=== PATIENT | female | born 1965 | race Two or more races ===

== ENCOUNTER 2020-07-27 13:10 | Outpatient (REF) | payer OTHER, SELFPAY | END 2020-07-27 13:11 | disposition home or self-care (01) | LOC: HO.RESP 13:10 | PROVIDERS: PCP Internal Medicine; Visit Provider Internal Medicine | DX: Z13.89 Encounter for screening for other disorder (principal) ==

== ENCOUNTER 2020-07-30 14:37 | Outpatient (REF) | payer OTHER, SELFPAY ==
--- NOTE | 2020-07-30 13:22 | PFT_ITS ---
The patient was referred for pulmonary function test. However, the patient was unable to perform the maneuvers for lung volumes and diffusion capacity. The spirometry findings are as follows: FVC, FEV1, [id number] and MVV are all markedly decreased. Post bronchodilator test was not performed. These findings are suggestive of rather severe degree of obstructive airway disorder. Clinical correlation recommended. MD ADAMS Wan/JARRETT / [id number]
== END 2020-07-30 14:38 | disposition home or self-care (01) ==
LOC: HO.RESP 14:37
PROVIDERS: Visit Provider Internal Medicine
DX: R06.02 Shortness of breath (principal)
CPT/HCPCS: 94060; 94727; 94729

== ENCOUNTER 2020-08-20 15:02 | Outpatient (REF) | payer OTHER, SELFPAY ==
[2020-08-21 09:22] LABS: BV Int Neg Control Negative (Negative); BV Int Pos Control Positive (Positive)
[2020-08-24 18:12] LABS: CT PCR NOT DETECTED (Not Detect.); NG PCR NOT DETECTED (Not Detect.)
== END 2020-08-20 15:03 | disposition home or self-care (01) ==
LOC: HO.LAB 15:02
PROVIDERS: PCP Internal Medicine; Referring Provider Internal Medicine; Visit Provider Obstetrics & Gynecology
DX: N89.8 Other specified noninflammatory disorders of vagina (principal); Z78.0 Asymptomatic menopausal state; Z11.8 Encounter for screening for other infectious and parasitic diseases; Z11.3 Encounter for screening for infections with a predominantly sexual mode of transmission
CPT/HCPCS: 87480; 87491; 87510; 87591; 87660; 99212

== ENCOUNTER 2020-08-31 13:33 | Outpatient (REF) | payer OTHER, SELFPAY ==
[2020-08-31 16:10] LABS: Syphilis Screen Nonreactive (Nonreactive)
[2020-09-02 12:00] LABS: BV Int Neg Control Negative (Negative); BV Int Pos Control Positive (Positive)
[2020-09-03 07:54] LABS: HBsAGNum1 0.15 S/CO (0.00-0.99); Hepatitis B Surface Antigen Negative (Negative); ~HepC Num1 0.09 S/CO (0.00-0.79); ~Hepatitis C Antibody Nonreactive (Nonreactive)
[2020-09-03 08:28] LABS: HIV AB/AG Nonreactive (Nonreactive); HIV Num 1 0.11 S/CO (0.00-0.99)
== END 2020-08-31 13:34 | disposition home or self-care (01) ==
LOC: HO.LAB 13:33
PROVIDERS: PCP Internal Medicine; Visit Provider Advanced Practice Midwife
DX: Z01.419 Encounter for gynecological examination (general) (routine) without abnormal findings (principal); Z20.2 Contact with and (suspected) exposure to infections with a predominantly sexual mode of transmission
CPT/HCPCS: 86780; 86803; 87340; 87389; 87480; 87491; 87510; 87591; 87660

== ENCOUNTER 2020-09-11 14:44 | Outpatient (REF) | payer OTHER, SELFPAY | END 2020-09-11 14:45 | disposition home or self-care (01) | LOC: HO.LAB 14:44 | PROVIDERS: Visit Provider Internal Medicine | DX: Z20.828 Contact with and (suspected) exposure to other viral communicable diseases (principal) | CPT/HCPCS: C9803; U0003 ==

== ENCOUNTER 2020-11-28 09:24 | Outpatient (REF) | payer OTHER, SELFPAY ==
--- NOTE | ~2020-11-28 | XR_ITS ---
EXAMINATION: XR CHEST CLINICAL INFORMATION: Shortness of breath COMPARISON: Previous chest x-ray most recent March 2015 TECHNIQUE: 2 views of the chest were obtained. FINDINGS: No significant abnormality is noted involving the heart, lungs, mediastinum, bony thorax or soft tissues. XR/XR chest 2V IMPRESSION: Unremarkable examination.
[2020-11-28 11:13] LABS: Alanine Aminotransferase 10 U/L (0-31); Albumin Level 4.3 g/dL (3.5-5.0); Alkaline Phosphatase 98 U/L (39-117); Anion Gap 9 (12-20); Aspartate Amino Transferase 17 U/L (5-31); Bilirubin Total 0.7 mg/dL (0.0-1.0); Blood Urea Nitrogen 9 mg/dL (9-16); Calcium 9.5 mg/dL (8.4-10.2); Carbon Dioxide 31 mmol/L (22-29); Chloride 103 mmol/L (96-108); Cholesterol 276 mg/dL; Estimated Glomerular Filt Rate > 60; Glucose Fasting 108 mg/dL (60-99); HDL Cholesterol 55 mg/dL; LDL Cholesterol Calculated 184 mg/dl; Potassium 3.9 mmol/L (3.3-5.1); Sodium 139 mmol/L (135-145); Total Protein 7.3 g/dL (6.5-8.0); Triglycerides 186 mg/dL
[2020-11-29 10:13] LABS: CT PCR NOT DETECTED (Not Detect.); NG PCR NOT DETECTED (Not Detect.)
== END 2020-11-28 09:25 | disposition home or self-care (01) ==
LOC: HO.LAB 09:24
PROVIDERS: Advanced Practice Midwife; PCP Internal Medicine; Visit Provider Internal Medicine
DX: Z01.419 Encounter for gynecological examination (general) (routine) without abnormal findings (principal); Z11.3 Encounter for screening for infections with a predominantly sexual mode of transmission; Z20.2 Contact with and (suspected) exposure to infections with a predominantly sexual mode of transmission; E78.5 Hyperlipidemia, unspecified; I10 Essential (primary) hypertension; R06.02 Shortness of breath
CPT/HCPCS: 36415; 71046; 80053; 80061; 87491; 87591

== ENCOUNTER → 2020-12-26 14:54 | Outpatient (BNVA) | payer OTHER, SELFPAY | PROVIDERS: PCP Internal Medicine; Visit Provider Surgery | DX: K64.9 Unspecified hemorrhoids (principal) | CPT/HCPCS: 46600; 99202 ==

== ENCOUNTER 2021-01-07 10:43 | Outpatient (REF) | payer OTHER, SELFPAY ==
--- NOTE | ~2021-01-07 | MM_ITS ---
EXAMINATION: MM SCREENING DIGITAL BREAST TOMOSYNTHESIS, BILATERAL CLINICAL INFORMATION: Screening. Asymptomatic. The lifetime risk of breast cancer based on the Tyrer-Cuzick Model is 9%. COMPARISON: Mammography: 07/06/2019, 06/08/2018, 07/22/2016, 03/13/2015 TECHNIQUE: Digital breast tomosynthesis is performed in both the craniocaudal and mediolateral oblique views along with computer-aided detection (CAD). Synthesized 2D images are generated from the tomosynthesis. FINDINGS: There are scattered areas of fibroglandular density (ACR BI-RADS breast composition Category b). There are no significant masses, abnormal calcifications, or other abnormalities. There are no significant changes from prior exams. MM/MM tomosynthesis screening BI IMPRESSION: No mammographic evidence of malignancy. ASSESSMENT: BI-RADS 1: Negative RECOMMENDATION: Routine annual mammography screening. This patient's information was entered into a reminder system with a target due date for their next mammogram.
== END 2021-01-07 10:44 | disposition home or self-care (01) ==
LOC: HO.MAMMO 10:43
PROVIDERS: PCP Internal Medicine; Visit Provider Internal Medicine
DX: Z12.31 Encounter for screening mammogram for malignant neoplasm of breast (principal)
CPT/HCPCS: 77063; 77067

== ENCOUNTER 2021-06-06 10:22 | Outpatient (REF) | payer OTHER, SELFPAY ==
[2021-06-06 11:37] LABS: Alanine Aminotransferase 13 U/L (0-31); Albumin Level 4.3 g/dL (3.5-5.0); Alkaline Phosphatase 97 U/L (39-117); Anion Gap 12 (12-20); Aspartate Amino Transferase 16 U/L (5-31); Bilirubin Total 0.3 mg/dL (0.0-1.0); Blood Urea Nitrogen 7 mg/dL (9-16); Carbon Dioxide 26 mmol/L (22-29); Chloride 107 mmol/L (96-108); Cholesterol 269 mg/dL; Estimated Glomerular Filt Rate > 60; Glucose Fasting 97 mg/dL (60-99); HDL Cholesterol 59 mg/dL; LDL Cholesterol Calculated 183 mg/dl; Potassium 4.5 mmol/L (3.3-5.1); Sodium 140 mmol/L (135-145); Total Protein 7.1 g/dL (6.5-8.0); Triglycerides 136 mg/dL
[2021-06-12 13:20] LABS: Vitamin D 25-OH, D2 <4 ng/mL; Vitamin D 25-OH, D3 27 ng/mL; Vitamin D 25-OH, Total 27 ng/mL (30-100)
== END 2021-06-06 10:23 | disposition home or self-care (01) ==
LOC: HO.LAB 10:22
PROVIDERS: PCP Internal Medicine; Visit Provider Internal Medicine
DX: E78.5 Hyperlipidemia, unspecified (principal); I10 Essential (primary) hypertension; E55.9 Vitamin D deficiency, unspecified
CPT/HCPCS: 36415; 80053; 80061; 82306

== ENCOUNTER 2021-06-11 10:37 | Outpatient (REF) | payer OTHER, SELFPAY ==
--- NOTE | ~2021-06-11 | XR_ITS ---
EXAMINATION: XR FOOT, LEFT CLINICAL INFORMATION: Pain COMPARISON: None TECHNIQUE: AP, lateral, and oblique views of the left foot. FINDINGS: There is mild osteopenia. No visible acute fracture, dislocation or subluxation seen. There is no abnormal soft tissue swelling. The ankle mortise and subtalar joints are normal. XR/XR foot LT min 3V IMPRESSION: Mild osteopenia. No visible acute fracture or dislocation seen.
== END 2021-06-11 10:38 | disposition home or self-care (01) ==
LOC: HO.XRAY 10:37
PROVIDERS: PCP Internal Medicine; Visit Provider Internal Medicine
DX: M79.672 Pain in left foot (principal)
CPT/HCPCS: 73630

== ENCOUNTER 2021-07-10 16:36 | Outpatient (REF) | payer OTHER, SELFPAY ==
[2021-07-10 17:30] LABS: Estimated Average Glucose 114 mg/dL; Hemoglobin A1c % 5.6 %
[2021-07-10 17:43] LABS: Alanine Aminotransferase 12 U/L (0-31); Albumin Level 4.4 g/dL (3.5-5.0); Alkaline Phosphatase 96 U/L (39-117); Anion Gap 12 (12-20); Aspartate Amino Transferase 17 U/L (5-31); Bilirubin Total 0.4 mg/dL (0.0-1.0); Blood Urea Nitrogen 7 mg/dL (9-16); Calcium 9.8 mg/dL (8.4-10.2); Carbon Dioxide 27 mmol/L (22-29); Chloride 104 mmol/L (96-108); Cholesterol 291 mg/dL; Estimated Glomerular Filt Rate > 60; Glucose Fasting 101 mg/dL (60-99); HDL Cholesterol 56 mg/dL; LDL Cholesterol Calculated 200 mg/dl; Potassium 4.1 mmol/L (3.3-5.1); Sodium 139 mmol/L (135-145); Total Protein 7.4 g/dL (6.5-8.0); Triglycerides 177 mg/dL
== END 2021-07-10 16:37 | disposition home or self-care (01) ==
LOC: HO.LAB 16:36
PROVIDERS: PCP Internal Medicine; Visit Provider Internal Medicine
DX: Z13.1 Encounter for screening for diabetes mellitus (principal); E78.5 Hyperlipidemia, unspecified
CPT/HCPCS: 36415; 80053; 80061; 83036

== ENCOUNTER 2021-09-02 09:30 | Outpatient (REF) | payer OTHER, SELFPAY ==
--- NOTE | 2021-09-02 11:26 | MHC.AU.ANR ---
Adult Audiological Evaluation Date of Visit: 09/02/21 Reason for Appointment: Audiological evaluation due to concern for decreased hearing. Ms. Sun reports that her primary care physician referred her because she noticed an abnormality in her right ear and possible infection two weeks ago. Ms. Sun feels that he hearing has been gradually decreasing and has been worse over the past three months. Does patient feel they have a hearing loss?: Yes If Yes, Which Ear?: Both Ears Has hearing been tested previously?: Yes Previous Hearing Test Results: Notes her hearing was tested a long time ago but does not remember results. Hearing Handicap Inventory: HHIE SCORE: 24 Based on HHIE score, patient has: Mild to moderate perceived hearing handicap Ear History: Recent Ear Pain: Both Ears Ear Infections in Childhood: Both Ears Medical History: Medical History: Dizziness or Unsteadiness, Headache, High Blood Pressure Medical History (Other): Appendectomy, leg surgery Allergies: Aspirin, trazodone, tramadol Medication List: albuterol sulfate 90 mcg/actuation (ProAir RespiClick) 2 inhalations inhalation Q6H PRN; atorvastatin 40 mg PO BEDTIME, bupropion HCl 300 mg PO QAM, fluticasone propionate 50 mcg/actuation 1 spray intranasal DAILY, lisinopril 10 mg PO DAILY, omeprazole 20 mg PO DAILY Otoscopy: Right Ear: White, cloudy TM, fluid behind TM. Clear canal Left Ear: Unremarkable Tympanometry: Tympanometry performed due to: To assess integrity of the middle ear system Right Ear: Reduced Middle Ear Compliance (Type As) Left Ear: Normal Middle Ear System (Type A) Hearing Evaluation: Transducer(s) Used: Insert Earphones,Bone Conduction Method: Conventional Audiometry Stimuli Used: Pure Tones Right Ear: Description of Hearing: Normal hearing from 250-2000 Hz, sloping to a mild conductive hearing loss from 2448-1476 Hz. Air-bone gap of 20 dBHL at 4000 Hz. Left Ear: Description of Hearing: Normal hearing from 250-8000 Hz. Speech Recognition Threshold (SRT): Method Used: Monitored Live Voice Stimuli Used: Spondee Words Right Ear: 15 dBHL Left Ear: 10 dBHL Word Discrimination: Method: Recorded Lists Word Lists Used: NU-6 Right Ear: 96% at 55 dBHL Left Ear: 96% at 50 dBHL Interpretation of Results: Mild conductive hearing loss in the right ear in the presence of middle-ear dysfunction. Normal hearing and middle-ear function in the left ear. Recommendations: Audiological re-evaluation in one year. Referral to Ear, Nose, and Throat to address middle ear dysfunction and conductive hearing loss. Diagnosis: Primary Diagnosis: H90.11 ConductiveHL Unilateral Right Ear, W/Unrestricted Contralateral Secondary Diagnosis: H69.91 Unspecified Eustachian Tube Dysfunction, Right Ear Services Performed: Services Performed: Comprehensive Audiological Evaluation (CPT 89981) Tympanometry (CPT 64631) Signature: Provider: Kennedy Seo, CCC-A
== END 2021-09-02 09:31 | disposition home or self-care (01) ==
LOC: HO.SH 09:30
PROVIDERS: Visit Provider Internal Medicine
DX: H90.11 Conductive hearing loss, unilateral, right ear, with unrestricted hearing on the contralateral side (principal); H69.91 Unspecified Eustachian tube disorder, right ear
CPT/HCPCS: 92557; 92567

== ENCOUNTER 2021-09-02 10:29 | Outpatient (REF) | payer OTHER, SELFPAY ==
[2021-09-02 16:24] LABS: CT PCR NOT DETECTED (Not Detect.); NG PCR NOT DETECTED (Not Detect.)
[2021-09-03 09:32] LABS: BV Int Neg Control Negative (Negative); BV Int Pos Control Positive (Positive)
[2021-09-06 02:22] LABS: HPV mRNA E6/E7 rflx Not Detected (Not Detected)
== END 2021-09-02 10:30 | disposition home or self-care (01) ==
LOC: HO.LAB 10:29
PROVIDERS: PCP Internal Medicine; Visit Provider Advanced Practice Midwife
DX: Z01.419 Encounter for gynecological examination (general) (routine) without abnormal findings (principal); N89.8 Other specified noninflammatory disorders of vagina; Z11.3 Encounter for screening for infections with a predominantly sexual mode of transmission; Z11.8 Encounter for screening for other infectious and parasitic diseases; Z11.51 Encounter for screening for human papillomavirus (HPV); Z11.59 Encounter for screening for other viral diseases; Z11.4 Encounter for screening for human immunodeficiency virus [HIV]; I10 Essential (primary) hypertension; E78.5 Hyperlipidemia, unspecified; A60.00 Herpesviral infection of urogenital system, unspecified; Z87.42 Personal history of other diseases of the female genital tract; Z88.6 Allergy status to analgesic agent; Z88.8 Allergy status to other drugs, medicaments and biological substances; Z79.899 Other long term (current) drug therapy
CPT/HCPCS: 87255; 87480; 87491; 87510; 87591; 87624; 87660; 88142

== ENCOUNTER 2021-11-28 12:14 | Outpatient (REF) | payer OTHER, SELFPAY ==
--- NOTE | ~2021-11-28 | XR_ITS ---
EXAMINATION: XR CERVICAL SPINE CLINICAL INFORMATION: Neck pain COMPARISON: Previous x-ray August 2016 TECHNIQUE: 3 views of the cervical spine were obtained. FINDINGS: Bone alignment is normal. No fracture or dislocation is seen. There is degenerative spondylosis and degenerative disc disease from C3-C4 to C6-C7. Prevertebral soft tissues are normal. XR/XR cervical spine 3V IMPRESSION: Degenerative changes. Findings are similar to 2016 exam.
== END 2021-11-28 12:15 | disposition home or self-care (01) ==
LOC: HO.XRAY 12:14
PROVIDERS: PCP Internal Medicine; Visit Provider Nurse Practitioner Family
DX: M54.2 Cervicalgia (principal); M54.9 Dorsalgia, unspecified
CPT/HCPCS: 72040

== ENCOUNTER 2022-01-09 10:07 | Outpatient (REF) | payer OTHER, SELFPAY ==
--- NOTE | ~2022-01-09 | MM_ITS ---
EXAMINATION: MM SCREENING DIGITAL BREAST TOMOSYNTHESIS, BILATERAL CLINICAL INFORMATION: Screening. Asymptomatic. The lifetime risk of breast cancer based on the Tyrer-Cuzick Model is 7.6%. COMPARISON: Mammography: January 07, 2021 and studies dating back to March 31, 2014 TECHNIQUE: Digital breast tomosynthesis is performed in both the craniocaudal and mediolateral oblique views along with computer-aided detection (CAD). Synthesized 2D images are generated from the tomosynthesis. FINDINGS: There are scattered areas of fibroglandular density (ACR BI-RADS breast composition Category b). There are no significant masses, abnormal calcifications, or other abnormalities. MM/MM tomosynthesis screening BI IMPRESSION: There are no significant changes from prior study. ASSESSMENT: BI-RADS 1: Negative RECOMMENDATION: Routine annual mammography screening. This patient's information was entered into a reminder system with a target due date for their next mammogram.
== END 2022-01-09 10:08 | disposition home or self-care (01) ==
LOC: HO.MAMMO 10:07
PROVIDERS: Visit Provider Internal Medicine
DX: Z12.31 Encounter for screening mammogram for malignant neoplasm of breast (principal)
CPT/HCPCS: 77063; 77067

== ENCOUNTER 2022-02-05 09:58 | Outpatient (REF) | payer OTHER, SELFPAY ==
[2022-02-05 11:51] LABS: HIV AB/AG Nonreactive (Nonreactive); HIV Num 1 0.06 S/CO (0.00-0.99); Hepatitis B Surface Antigen Negative (Negative); ~HepC Num1 0.11 S/CO (0.00-0.79); ~Hepatitis C Antibody Nonreactive (Nonreactive)
[2022-02-05 12:06] LABS: Alanine Aminotransferase 12 U/L (0-31); Albumin Level 4.2 g/dL (3.5-5.0); Alkaline Phosphatase 90 U/L (39-117); Anion Gap 11 (12-20); Aspartate Amino Transferase 16 U/L (5-31); Bilirubin Total 0.6 mg/dL (0.0-1.0); Blood Urea Nitrogen 7 mg/dL (9-16); Calcium 10.1 mg/dL (8.4-10.2); Carbon Dioxide 27 mmol/L (22-29); Chloride 107 mmol/L (96-108); Cholesterol 297 mg/dL; Estimated Glomerular Filt Rate > 60; Glucose Fasting 105 mg/dL (60-99); HDL Cholesterol 58 mg/dL; LDL Cholesterol Calculated 210 mg/dl; Potassium 4.6 mmol/L (3.3-5.1); Sodium 140 mmol/L (135-145); Total Protein 7.2 g/dL (6.5-8.0); Triglycerides 147 mg/dL
[2022-02-05 12:17] LABS: Syphilis Screen Nonreactive (Nonreactive)
[2022-02-10 12:36] LABS: Vitamin D 25-OH, D2 <4 ng/mL; Vitamin D 25-OH, D3 23 ng/mL; Vitamin D 25-OH, Total 23 ng/mL (30-100)
== END 2022-02-05 09:59 | disposition home or self-care (01) ==
LOC: HO.LAB 09:58
PROVIDERS: Advanced Practice Midwife; PCP Internal Medicine; Visit Provider Internal Medicine
DX: Z11.4 Encounter for screening for human immunodeficiency virus [HIV] (principal); Z11.3 Encounter for screening for infections with a predominantly sexual mode of transmission; A60.00 Herpesviral infection of urogenital system, unspecified; Z20.2 Contact with and (suspected) exposure to infections with a predominantly sexual mode of transmission; E55.9 Vitamin D deficiency, unspecified; E78.5 Hyperlipidemia, unspecified; I10 Essential (primary) hypertension; Z87.42 Personal history of other diseases of the female genital tract
CPT/HCPCS: 36415; 80053; 80061; 82306; 86780; 86803; 87340; 87389

== ENCOUNTER 2022-02-20 08:00 | Outpatient (REF) | payer OTHER, SELFPAY ==
[2022-02-20 08:23] LABS: MANUAL DIFF FLAG NO
[2022-02-20 08:45] LABS: Basophils Absolute Auto 0.1 X10*3/uL (0.0-0.2); Basophils Percent Auto 0.9 % (0-2); Eosinophils Absolute Auto 0.2 X10*3/uL (0.0-0.4); Eosinophils Percent Auto 2.6 % (0-4); Hematocrit 37.9 % (37.0-47.0); Hemoglobin 12.5 g/dl (12.0-16.0); Imm Gran Abs Auto 0.01 X10*3/uL (0.00-0.03); Imm Gran Pct Auto 0.2 % (0.0-0.4); Lymphocytes Absolute Auto 2.5 X10*3/uL (1.2-4.9); Lymphocytes Percent Auto 43.7 % (20-40); Mean Corpuscular Hemoglobin 29.5 pg (27.0-33.0); Mean Corpuscular Volume 89.4 fL (80.0-98.0); Mean Platelet Volume 10.2 fL (9.4-12.3); Monocytes Absolute Auto 0.5 X10*3/uL (0.1-1.2); Monocytes Percent Auto 8.3 % (2-11); Neutrophils Absolute Auto 2.5 x10*3/uL (2.0-8.3); Neutrophils Percent Auto 44.3 % (45-73); Platelet Count 250 X10*3/uL (160-400); Red Blood Count 4.24 X10*6/uL (4.20-5.50); Red Cell Distribution Width 12.5 % (11.0-16.0); White Blood Count 5.7 X10*3/uL (4.8-10.8)
[2022-02-20 09:24] LABS: Thyroid Stimulating Hormone 2.29 uIU/mL (0.32-4.0)
== END 2022-02-20 08:01 | disposition home or self-care (01) ==
LOC: HO.LAB 08:00
PROVIDERS: PCP Internal Medicine; Visit Provider Internal Medicine
DX: R63.4 Abnormal weight loss (principal)
CPT/HCPCS: 36415; 84443; 85025

== ENCOUNTER 2022-07-21 08:29 | Outpatient (REF) | payer OTHER, SELFPAY ==
--- NOTE | ~2022-07-21 | XR_ITS ---
EXAMINATION: XR MANDIBLE CLINICAL INFORMATION: R22.0 - Localized swelling, mass and lump, head COMPARISON: None TECHNIQUE: 5 views of the mandible were obtained. FINDINGS: There is no destructive process or periostitis. No expansile lesion or exostosis. The visualized sinuses and mastoid air cells show no air-fluid levels. No gas tracking in soft tissues. If there is localized swelling, further assessment with CT or MR may be considered. XR/XR mandible min 4V IMPRESSION: Unremarkable examination.
[2022-07-21 09:29] LABS: Alanine Aminotransferase 12 U/L (0-31); Albumin Level 4.3 g/dL (3.5-5.0); Alkaline Phosphatase 93 U/L (39-117); Anion Gap 15 (12-20); Aspartate Amino Transferase 17 U/L (5-31); Bilirubin Total 0.4 mg/dL (0.0-1.0); Blood Urea Nitrogen 10 mg/dL (9-16); Calcium 9.7 mg/dL (8.4-10.2); Carbon Dioxide 26 mmol/L (22-29); Chloride 104 mmol/L (96-108); Cholesterol 275 mg/dL; Estimated Glomerular Filt Rate > 60; Glucose Fasting 105 mg/dL (60-99); HDL Cholesterol 58 mg/dL; LDL Cholesterol Calculated 193 mg/dl; Potassium 4.8 mmol/L (3.3-5.1); Sodium 140 mmol/L (135-145); Total Protein 7.3 g/dL (6.5-8.0); Triglycerides 122 mg/dL
[2022-07-21 09:42] LABS: Vitamin D 25-OH Total 25.7 ng/mL (>30)
== END 2022-07-21 08:30 | disposition home or self-care (01) ==
LOC: HO.XRAY 08:29
PROVIDERS: PCP Internal Medicine; Visit Provider Internal Medicine
DX: Z00.00 Encounter for general adult medical examination without abnormal findings (principal); R22.0 Localized swelling, mass and lump, head; E55.9 Vitamin D deficiency, unspecified; E78.5 Hyperlipidemia, unspecified
CPT/HCPCS: 36415; 70110; 80053; 80061; 82306

== ENCOUNTER 2022-09-05 09:54 | Outpatient (REF) | payer OTHER, SELFPAY ==
[2022-09-06 11:22] LABS: BV Int Neg Control Negative (Negative); BV Int Pos Control Positive (Positive)
== END 2022-09-05 09:55 | disposition home or self-care (01) ==
LOC: HO.LNP 09:54
PROVIDERS: PCP Internal Medicine; Visit Provider Advanced Practice Midwife
DX: Z01.419 Encounter for gynecological examination (general) (routine) without abnormal findings (principal); A60.00 Herpesviral infection of urogenital system, unspecified; Z20.2 Contact with and (suspected) exposure to infections with a predominantly sexual mode of transmission
CPT/HCPCS: 87480; 87491; 87510; 87591; 87660

== ENCOUNTER 2022-09-05 10:55 | Outpatient (REF) | payer OTHER, SELFPAY ==
[2022-09-06 04:37] LABS: CT PCR NOT DETECTED (Not Detect.); NG PCR NOT DETECTED (Not Detect.)
== END 2022-09-05 10:56 | disposition home or self-care (01) ==
LOC: HO.LAB 10:55
PROVIDERS: PCP Internal Medicine; Visit Provider Advanced Practice Midwife
DX: Z13.89 Encounter for screening for other disorder (principal)
CPT/HCPCS: 87491; 87591

== ENCOUNTER 2023-01-23 08:44 | Outpatient (REF) | payer OTHER, SELFPAY ==
--- NOTE | ~2023-01-23 | MM_ITS ---
EXAMINATION: MM SCREENING DIGITAL BREAST TOMOSYNTHESIS, BILATERAL CLINICAL INFORMATION: Screening. Asymptomatic. The lifetime risk of breast cancer based on the Tyrer-Cuzick Model is 8%. COMPARISON: Mammography: 01/09/2022, 01/07/2021, 07/06/2019 TECHNIQUE: Digital breast tomosynthesis is performed in both the craniocaudal and mediolateral oblique views along with computer-aided detection (CAD). Synthesized 2D images are generated from the tomosynthesis. FINDINGS: There are scattered areas of fibroglandular density (ACR BI-RADS breast composition Category b). There are no significant masses, abnormal calcifications, or other abnormalities. No architectural abnormality or developing density or significant change from prior studies. The axilla and skin contours are unremarkable. MM/MM tomosynthesis screening BI IMPRESSION: No significant changes from prior exam. ASSESSMENT: BI-RADS 1: Negative RECOMMENDATION: Routine annual mammography screening. This patient's information was entered into a reminder system with a target due date for their next mammogram.
== END 2023-01-23 08:45 | disposition home or self-care (01) ==
LOC: HO.MAMMO 08:44
PROVIDERS: PCP Internal Medicine; Visit Provider Internal Medicine
DX: Z12.31 Encounter for screening mammogram for malignant neoplasm of breast (principal)
CPT/HCPCS: 77063; 77067

== ENCOUNTER 2023-07-29 08:07 | Outpatient (AMB) | payer OTHER, SELFPAY ==
[2023-07-29 08:09] VITALS: BP 148/80; PULSE 71; O2SAT 99; BMI 25.3
--- NOTE | 2023-07-29 08:09 | MHC.PC.OV ---
Vital Signs 07/29/23 08:09 07/29/23 08:59 Height 5 ft 3 in Weight 143 lb BMI 25.3 BP 148/80 H 150/80 H Blood Pressure Location Lt brachial Lt brachial Position Sitting Sitting Pulse 71 Pulse Source Pulse Oximeter Pulse Oximetry (%) 99 Oxygen Delivery Method Room Air Intake Visit Reasons: PE Intake Note: Patient here for a physical exam Model Maker Scale Required: No Accompanied by: Self / Same As Patient Allergies aspirin [ASPIRIN] Allergy (Intermediate, Verified 07/29/23 08:42) SOB N/V trazodone [TRAZODONE] Allergy (Intermediate, Verified 07/29/23 08:42) NAUSEA & VOMITING tramadol Adverse Reaction (Intermediate, Verified 07/29/23 08:42) stomach upset Medication List - Last Reconciled 07/29/23 by Ashley Stafford MD acetaminophen 1,000 mg PO Q6H PRN albuterol sulfate 90 mcg/actuation (ProAir RespiClick) 2 inhalations inhalation Q6H PRN 30 days atorvastatin 80 mg PO BEDTIME 90 days bupropion HCl 300 mg PO QAM 90 days cholecalciferol (vitamin D3) 25 mcg PO DAILY 90 days doxepin 10 mg PO BEDTIME fluticasone propionate 50 mcg/actuation 1 spray intranasal DAILY 30 days levalbuterol tartrate 45 mcg/actuation 2 inhalations inhalation Q6H 30 days lisinopril 10 mg PO DAILY 90 days omeprazole 20 mg PO DAILY 90 days tizanidine 2 mg PO Q8H PRN valacyclovir 1,000 mg PO DAILY Tobacco use date assessed: 11/10/22 Dental Screening Dental Screen Date: 07/29/23 Did you have a dental visit in the last 12 months?: Yes Did you have a dental problem in the last 6 months where you did not have access to dental care?: No Was dental information given to patient?: Patient has dentist HPI HPI Comments History of Present Illness Details This is a 57-year-old female with mild recurrent major depression that comes for her physical exam. Depression stable with bupropion. Last colonoscopy was 2014 and she has a sister that of colon cancer and she was less than 60 years old therefore I will refer her again to Gastroenterology. Last mammogram was January 2023 and was normal. Last Pap smear was 2020 was normal. No chest pain or shortness of breath. Complains of left ankle pain that started about a year ago. She has history of orthopedic surgery in left ankle due to left ankle fracture in 2019. Would like to see [place] [facility]. Left ankle pain aggravated by climbing stairs but able to walk with no assistive device. Blood pressure elevated today and she did took her lisinopril. Blood pressure will be recheck in 3 weeks by nurse navigator. [facility] Medical History (Updated 07/29/23 @ 08:55 by Ashley Stafford MD) Hypovitaminosis D Unintentional weight loss Lump on face Conductive hearing loss in right ear Hearing loss Insomnia FLORESITA (generalized anxiety disorder) Mild recurrent major depression Left foot pain GERD (gastroesophageal reflux disease) Hemorrhoids Anal pain Mild asthma Dyslipidemia Essential hypertension History of broken leg Shortness of breath Surgical History History of laser refractive surgery History of knee surgery History of ankle surgery Hx of appendectomy H/O tubal ligation Family History (Updated 07/29/23 @ 08:59 by Ashley Stafford MD) Father HTN (hypertension) Diabetes CVD (cardiovascular disease) Stroke Mother HTN (hypertension) Diabetes Bone cancer Sister Ovarian cancer Sister Colon cancer Maternal Aunt Breast cancer Son In good health Son In good health Sister HTN (hypertension) CKD (chronic kidney disease) stage V requiring chronic dialysis Social History Housing: Apartment Alcohol intake: current Alcohol intake frequency: a few times a month Alcohol type: beer and wine Patient Tobacco Use Status: Never used Tobacco e-Cigarette/Vaping Use: Never Used Second Hand Smoke Exposure: No service: No Current occupational status: employed Current occupational exposures/hazards: No Sexual orientation: Straight/Heterosexual Gender identity: Female Cognitive needs: No Hearing needs: No Vision needs: No Female Reproductive History Menstrual Age of Menarche: 12 Questionnaire Thrive Questionnaire Date Thrive assessed: 11/10/22 FLORESITA-7 AMB Questionnaire FLORESITA-7 Date FLORESITA - 7 assessed: 11/10/22 Source: Developed by Drs. Johny Wilson, Hortensia Ayala, Tree Barnes and colleagues, with an educational maurilio from [employer]. Review of Systems Const All systems reviewed & are unremarkable except as noted in HPI and below Eyes Reports no additional complaints, Denies change in vision and Denies other visual disturbances Card Denies chest pain at rest, Denies chest pain with activity, Denies edema, Denies irregular heart rhythm, Denies claudication, Denies dyspnea, Denies dyspnea on exertion, Denies orthopnea, Denies paroxysmal nocturnal dyspnea and Denies slow heart rate Resp Denies cough, Denies dyspnea and Denies dyspnea on exertion GI Denies abdominal pain, Denies change in bowel habits, Denies excessive flatus, Denies nausea and Denies vomiting Denies urinary incontinence, Denies urinary hesitancy and Denies urinary urgency Musc Denies abnormal gait, Denies atrophy, Denies deformity, Reports arthralgias and Denies limited range of motion Skin/Breast Denies bleeding lesions, Denies changing lesions and Denies rash Neuro Denies abnormal gait, Denies behavioral changes, Denies confusion and Denies lack of coordination Psych Denies behavioral changes and Denies confusion Physical exam (Primary Care) Vital Signs: Last Vital Signs Pulse 71 07/29/23 08:09 BP 148/80 H 07/29/23 08:09 Pulse Ox 99 07/29/23 08:09 Oxygen Delivery Method Room Air 07/29/23 08:09 BMI result Body Mass Index 25.3 Tobacco/Smoking Status: Tobacco use Status Tobacco use date assessed 11/10/22 07/29/23 08:10 Patient Tobacco Use Status Never used Tobacco 07/29/23 08:10 e-Cigarette/Vaping Use Never Used 07/29/23 08:10 Thrive Assessment: Date of Thrive Assessment Date Thrive assessed 11/10/22 07/29/23 08:10 Const General: No confusion Orientation/consciousness: patient oriented x3 and No confusion HENRI Head: Yes normal to inspection, Yes normocephalic and Yes atraumatic Ears: external ears normal Mouth: lip normal Eyes General: appearance normal, both eyes and all related structures Eyelids: Yes eyelids normal Conjunctivae: conjunctivae normal Neck Neck: Yes normal visual inspection and Yes supple Resp Effort & Inspection: normal respiratory effort Auscultation: clear to auscultation bilaterally Cardio Jugular venous distension: no JVD Rate: regular rate Rhythm: regular rhythm Heart sounds: S1 normal heart sound present and S2 normal heart sound present GI Inspection: Yes normal to inspection Palpation (GI): Soft to palpation and nontender Auscultation: normal bowel sounds Skin General skin exam: no rashes or lesions noted Neuro General: patient oriented x3, no focal motor deficits and No confusion Extrem General: Yes full ROM Psych Appearance: grossly normal Office Procedures Flu Questionnaire Does the patient have a severe egg allergy?: No Immunizations flu vacc [id number] 6mos up(PF) 60 mcg(15 mcgx4)/0.5 mL IM syringe Performing Provider: Ashley Stafford MD [facility] Documented (not given) by: ANDREW Live on 07/29/23 08:13 Reason Not Given: Patient Refused Assessment and Plan Assessment & Plan (1) Physical exam: Code(s): Z00.00 - Encounter for general adult medical examination without abnormal findings Plan: Repeat in a year. (2) Mild recurrent major depression: Code(s): F33.0 - Major depressive disorder, recurrent, mild Plan: Continue bupropion. Orders: Orders Influenza [id number] Immunization Today Z23 - Encounter for immunization Vitamin D 25-OH Total Today E55.9 - Vitamin D deficiency, unspecified Comprehensive [place]. Panel Fast Today E78.5 - Hyperlipidemia, unspecified XR ankle LT 2V Today M25.572 - Pain in left ankle and joints of left foot Lipid Panel Today E78.5 - Hyperlipidemia, unspecified Referrals Open Access Screening Colonoscopy Referral Z12.11 - Encounter for screening for malignant neoplasm of colon, Z80.0 - Family history of malignant neoplasm of digestive organs Orthopedics Referral M25.572 - Pain in left ankle and joints of left foot Medications: Refilled fluticasone propionate 50 mcg/actuation 1 spray intranasal DAILY 30 days 16 grams 1RF Coding Level of Care Code Est Pt Prev Care 40-64y(78268) Diagnoses Physical exam Z00.00 Mild recurrent major depression F33.0 Time Spent (min) 32
[2023-07-29 08:59] VITALS: BP 150/80
== END 2023-07-29 08:56 | disposition home or self-care (01) ==
PROVIDERS: Visit Provider Internal Medicine
DX: Z00.00 Encounter for general adult medical examination without abnormal findings (principal); F33.0 Major depressive disorder, recurrent, mild
CPT/HCPCS: 99396

== ENCOUNTER 2023-07-29 09:11 | Outpatient (REF) | payer OTHER, SELFPAY ==
--- NOTE | ~2023-07-29 | XR_ITS ---
EXAMINATION: XR ANKLE, LEFT CLINICAL INFORMATION: Pain in left ankle COMPARISON: None available. TECHNIQUE: AP, lateral, and mortise views of the left ankle. FINDINGS: There is no evidence of acute fracture or dislocation. Ankle mortise is preserved. There is mild deformity of the lateral malleolus most likely related to healed fracture of indeterminate age. Soft tissues are normal. XR/XR ankle LT 2V IMPRESSION: No acute abnormalities. Mild deformity of the lateral malleolus likely related to healed fracture of indeterminate age.
== END 2023-07-29 09:12 | disposition home or self-care (01) ==
LOC: HO.XRAY 09:11
PROVIDERS: PCP Internal Medicine; Visit Provider Internal Medicine
DX: M25.572 Pain in left ankle and joints of left foot (principal)
CPT/HCPCS: 73600

== ENCOUNTER 2023-08-10 07:58 | Outpatient (REF) | payer OTHER, SELFPAY ==
[2023-08-10 08:50] LABS: Alanine Aminotransferase 11 U/L (0-31); Albumin Level 4.1 g/dL (3.5-5.0); Alkaline Phosphatase 91 U/L (39-117); Anion Gap 8 (12-20); Aspartate Amino Transferase 18 U/L (5-31); Bilirubin Total 0.3 mg/dL (0.0-1.0); Blood Urea Nitrogen 10 mg/dL (9-16); Calcium 9.8 mg/dL (8.4-10.2); Carbon Dioxide 30 mmol/L (22-29); Chloride 107 mmol/L (96-108); Cholesterol 295 mg/dL (<200); Estimated Glomerular Filt Rate > 60; Glucose Fasting 102 mg/dL (60-99); HDL Cholesterol 62 mg/dL (>40); LDL Cholesterol Calculated 193 mg/dL (<100); Potassium 4.2 mmol/L (3.3-5.1); Sodium 141 mmol/L (135-145); Total Protein 7.3 g/dL (6.5-8.0); Triglycerides 200 mg/dL (<150)
[2023-08-10 09:03] LABS: Vitamin D 25-OH Total 18.5 ng/mL (>30)
== END 2023-08-10 07:59 | disposition home or self-care (01) ==
LOC: HO.LAB 07:58
PROVIDERS: PCP Internal Medicine; Visit Provider Internal Medicine
DX: E55.9 Vitamin D deficiency, unspecified (principal); E78.5 Hyperlipidemia, unspecified
CPT/HCPCS: 36415; 80053; 80061; 82306

== ENCOUNTER 2024-01-29 08:45 | Outpatient (REF) | payer OTHER, SELFPAY | END 2024-01-29 08:46 | disposition home or self-care (01) | LOC: HO.MAMMO 08:45 | PROVIDERS: PCP Internal Medicine; Visit Provider Internal Medicine | DX: Z12.31 Encounter for screening mammogram for malignant neoplasm of breast (principal) | CPT/HCPCS: 77063; 77067 ==

== ENCOUNTER → 2024-01-29 09:00 | Outpatient (BNV) | payer OTHER, SELFPAY | PROVIDERS: PCP Internal Medicine; Visit Provider Radiology Diagnostic Radiology | DX: Z12.31 Encounter for screening mammogram for malignant neoplasm of breast (principal) | CPT/HCPCS: 77063; 77067 ==

== ENCOUNTER 2024-03-15 17:03 | Outpatient (AMB) | payer OTHER, SELFPAY ==
[2024-03-15 17:05] VITALS: BP 130/78; PULSE 73; O2SAT 99; BMI 26.8
--- NOTE | 2024-03-15 17:05 | A.OFFPC_ITS ---
Vital Signs 03/15/24 17:05 Height 5 ft 3 in Weight 151 lb 2 oz BMI 26.8 BP 130/78 Blood Pressure Location Lt brachial Position Sitting Pulse 73 Pulse Source Pulse Oximeter Pulse Oximetry (%) 99 Oxygen Delivery Method Room Air Intake Visit Reasons: Depression Childhood Teacher Required: No Accompanied by: Self / Same As Patient Allergies aspirin [ASPIRIN] Allergy (Intermediate, Verified 03/15/24 17:13) SOB N/V trazodone [TRAZODONE] Allergy (Intermediate, Verified 03/15/24 17:13) NAUSEA & VOMITING tramadol Adverse Reaction (Intermediate, Verified 03/15/24 17:13) stomach upset Medication List - Last Reconciled 03/15/24 by Ashley Stafford MD acetaminophen 1,000 mg PO Q6H PRN albuterol sulfate 90 mcg/actuation (ProAir RespiClick) 2 inhalations inhalation Q6H PRN 30 days atorvastatin 80 mg PO BEDTIME 90 days bupropion HCl XL 300 mg PO QAM 90 days cholecalciferol (vitamin D3) 25 mcg PO DAILY 90 days doxepin 10 mg PO BEDTIME fluticasone propionate 50 mcg/actuation 1 spray intranasal DAILY 30 days levalbuterol tartrate 45 mcg/actuation 2 inhalations inhalation Q6H 30 days lisinopril 10 mg PO DAILY 90 days omeprazole 20 mg PO DAILY 90 days tizanidine 2 mg PO Q8H PRN valacyclovir 1,000 mg PO DAILY Tobacco use date assessed: 03/15/24 Dental Screening Dental Screen Date: 03/15/24 Did you have a dental visit in the last 12 months?: Yes Did you have a dental problem in the last 6 months where you did not have access to dental care?: No Was dental information given to patient?: Patient has dentist HPI HPI Comments History of Present Illness Details This is a 58 year old female with hypertension, dyslipidemia, GERD and severe recurrent major depression that comes for follow up on her conditions. BP stable. On statins for cholesterol. GERD stable with PPIs. She has depression follows by psychiatry. She has not been able to work due to chronic left leg pain. No chest pain or shortness of breath. [facility] Medical History (Updated 03/15/24 @ 19:56 by Ashley Stafford MD) Hypovitaminosis D Unintentional weight loss Lump on face Conductive hearing loss in right ear Hearing loss Insomnia FLORESITA (generalized anxiety disorder) Mild recurrent major depression Left foot pain GERD (gastroesophageal reflux disease) Hemorrhoids Anal pain Mild asthma Dyslipidemia Essential hypertension History of broken leg Shortness of breath Surgical History History of laser refractive surgery History of knee surgery History of ankle surgery Hx of appendectomy H/O tubal ligation Family History Father HTN (hypertension) Diabetes CVD (cardiovascular disease) Stroke Mother HTN (hypertension) Diabetes Bone cancer Sister Ovarian cancer Sister Colon cancer Maternal Aunt Breast cancer Son In good health Son In good health Sister HTN (hypertension) CKD (chronic kidney disease) stage V requiring chronic dialysis Social History Housing: Apartment Alcohol intake: current Alcohol intake frequency: a few times a month Alcohol type: beer and wine Patient Tobacco Use Status: Never used Tobacco e-Cigarette/Vaping Use: Never Used Second Hand Smoke Exposure: No service: No Current occupational status: employed Current occupational exposures/hazards: No Sexual orientation: Straight/Heterosexual Gender identity: Female Cognitive needs: No Hearing needs: No Vision needs: No Female Reproductive History Menstrual Age of Menarche: 12 Questionnaire PHQ-9 Over the last 2 weeks, how often have you been bothered by any of the following problems? 1. Little interest or pleasure in doing things: more than half the days 2. Feeling down, depressed, or hopeless: nearly every day 3. Trouble falling or staying asleep, or sleeping too much: nearly every day 4. Feeling tired or having little energy: nearly every day 5. Poor appetite or overeating: nearly every day 6. Feeling bad about yourself - or that you are a failure or have let yourself or your family down: nearly every day 7. Trouble concentrating on things, such as reading the newspaper or watching television: nearly every day 8. Moving or speaking so slowly that other people could have noticed. Or the opposite - being so fidgety or restless that you have been moving around a lot more than usual: nearly every day 9. Thoughts that you would be better off or of hurting yourself in some way: nearly every day Total score: 26 Depression Screening Interpretation: Positive (no suicidal thoughts) Depression Screening Follow-up: Existing condition, In treatment, Community Mental Health Worker F/U and Follow-up Visit Requested Depression Screening Done: Yes 43048 - PHQ-9 Billing: Yes Source: Developed by Drs. Johny Wilson, Hortensia Ayala, Tree Barnes and colleagues, with an educational maurilio from [employer]. Thrive Questionnaire Date Thrive assessed: 03/15/24 I am a: Patient What is your living situation today?: I have a steady place to live Within the past 12 months, did the food you bought not last and you didn't have the money to get more?: Never true Within the past 12 months, did you worry whether your food would run out before you got money to buy more?: Never true Do you have trouble paying for medicines?: No Do you have trouble getting transportation to medical appointments?: No Do you have trouble paying your heating and electricity bill?: No Do you have trouble taking care of your child, family member or friend?: No Do you have trouble with day-to-day activities such as bathing, preparing meals, shopping, managing finances, etc.?: No Are you currently unemployed and looking for a job?: No Are you interested in more education?: No Please select the resources that you would like help with: None Currently or been in a relationship where the following occur: No concerns reported THRIVE Score: 0 AUDIT C Alcohol Use Questionnaire (AUDIT-C) 1. How often do you have a drink containing alcohol?: Monthly or less 2. How many drinks containing alcohol do you have on a typical day when you are drinking?: 1 or 2 3. How often do you have six or more drinks on one occasion?: Never Total Score: 1 Score Reviewed/Action Taken: No FLORESITA-7 AMB Questionnaire FLORESITA-7 Date FLORESITA - 7 assessed: 03/15/24 Feeling nervous, anxious, or on edge: 3 = Nearly every day Not being able to stop or control worryin = Nearly every day Worrying too much about different things: 3 = Nearly every day Trouble relaxin = More than half the days Being so restless that it is hard to sit still: 3 = Nearly every day Becoming easily annoyed or irritable: 2 = More than half the days Feeling afraid as if something awful might happen: 3 = Nearly every day Total FLORESITA-7 score (0-4 normal; 5-9 mild; 10-14 moderate; 15-21 severe): 19 Source: Developed by Drs. Johny Wilson, Hortensia Ayala, Tree Barnes and colleagues, with an educational maurilio from [employer]. FLORESITA-7 Assessment Billing FLORESITA-7 Assessment Tool: FLORESITA-7 Assessment 61420 Review of Systems Const All systems reviewed & are unremarkable except as noted in HPI and below Card Denies chest pain at rest, Denies chest pain with activity, Denies edema, Denies irregular heart rhythm, Denies claudication, Denies dyspnea, Denies dyspnea on exertion, Denies orthopnea, Denies paroxysmal nocturnal dyspnea and Denies slow heart rate Resp Denies cough, Denies dyspnea and Denies dyspnea on exertion Physical exam (Primary Care) Vital Signs: Last Vital Signs Pulse 73 03/15/24 17:05 BP 130/78 03/15/24 17:05 Pulse Ox 99 03/15/24 17:05 Oxygen Delivery Method Room Air 03/15/24 17:05 BMI result Body Mass Index 26.8 Tobacco/Smoking Status: Tobacco use Status Tobacco use date assessed 03/15/24 03/15/24 17:13 Patient Tobacco Use Status Never used Tobacco 03/15/24 17:13 e-Cigarette/Vaping Use Never Used 03/15/24 17:13 PHQ-9: PHQ-9 Score PHQ-9: Total score 26 03/15/24 17:24 Depression Screening Interpretation: Positive (no suicidal thoughts) Depression Screening Follow-up: Existing condition, In treatment, Community Mental Health Worker F/U and Follow-up Visit Requested Thrive Assessment: Date of Thrive Assessment Date Thrive assessed 03/15/24 03/15/24 17:13 Currently or been in a relationship where the following occur: No concerns reported Resp Effort & Inspection: normal respiratory effort Auscultation: clear to auscultation bilaterally Cardio Jugular venous distension: no JVD Rate: regular rate Rhythm: regular rhythm Heart sounds: S1 normal heart sound present and S2 normal heart sound present Extrem General: Yes full ROM Assessment and Plan Assessment & Plan (1) Essential hypertension: Code(s): I10 - Essential (primary) hypertension Plan: Continue lisinopril. BP goal is equal or less than 140/90. (2) Dyslipidemia: Code(s): E78.5 - Hyperlipidemia, unspecified Plan: Continue statins. Repeat lipid panel. (3) GERD (gastroesophageal reflux disease): Code(s): K21.9 - Gastro-esophageal reflux disease without esophagitis Qualifiers: Esophagitis presence: esophagitis presence not specified Qualified Code(s): K21.9 - Gastro-esophageal reflux disease without esophagitis Plan: Continue PPIs. (4) Severe recurrent major depression: Code(s): F33.2 - Major depressive disorder, recurrent severe without psychotic features Qualifiers: Psychotic features: without psychotic features Qualified Code(s): F33.2 - Major depressive disorder, recurrent severe without psychotic features Plan: Continue bupropion. Follow up with psychiatry. Orders: Orders Lipid Panel 4 Months E78.5 - Hyperlipidemia, unspecified Vitamin D 25-OH Total 4 Months E55.9 - Vitamin D deficiency, unspecified Comprehensive Peculiar. Panel Fast 4 Months M54.2 - Cervicalgia Medications: Refilled atorvastatin 80 mg PO BEDTIME 90 tabs 1RF 90 days lisinopril 10 mg PO DAILY 90 tabs 1RF 90 days levalbuterol tartrate 45 mcg/actuation 2 inhalations inhalation Q6H 15 grams 1RF 30 days J45.909 - Unspecified asthma, uncomplicated cholecalciferol (vitamin D3) 25 mcg PO DAILY 90 caps 3RF 90 days E55.9 - Vitamin D deficiency, unspecified omeprazole 20 mg PO DAILY 90 caps 3RF 90 days K21.9 - Gastro-esophageal reflux disease without esophagitis Coding Level of Care Code Est Pt Level 4 (59342) Complex EM visit Add On G2211 Diagnoses Essential hypertension I10 Dyslipidemia E78.5 Gastroesophageal reflux disease, unspecified whether esophagitis present K21.9 Esophagitis presence: esophagitis presence not specified Severe episode of recurrent major depressive disorder, without psychotic features F33.2 Psychotic features: without psychotic features Additional Codes FLORESITA-7 Assessment Billing - FLORESITA-7 Assessment Tool: FLORESITA-7 Assessment 31869 ([id number]) Time Spent (min) 22
== END 2024-03-15 17:31 | disposition home or self-care (01) ==
PROVIDERS: PCP Internal Medicine; Visit Provider Internal Medicine
DX: I10 Essential (primary) hypertension (principal); E78.5 Hyperlipidemia, unspecified; K21.9 Gastro-esophageal reflux disease without esophagitis; F33.2 Major depressive disorder, recurrent severe without psychotic features
CPT/HCPCS: 99214; G2211

== ENCOUNTER 2024-08-02 08:02 | Outpatient (REF) | payer OTHER, SELFPAY ==
[2024-08-02 09:19] LABS: Alanine Aminotransferase 16 U/L (0-31); Albumin Level 4.1 g/dL (3.5-5.0); Alkaline Phosphatase 87 U/L (39-117); Anion Gap 9 (12-20); Aspartate Amino Transferase 22 U/L (5-31); Bilirubin Total 0.6 mg/dL (0.0-1.0); Blood Urea Nitrogen 9 mg/dL (9-16); Calcium 9.4 mg/dL (8.4-10.2); Carbon Dioxide 28 mmol/L (22-29); Chloride 106 mmol/L (96-108); Cholesterol 220 mg/dL (<200); Estimated Glomerular Filt Rate > 60; Glucose Fasting 106 mg/dL (60-99); HDL Cholesterol 64 mg/dL (>40); LDL Cholesterol Calculated 131 mg/dL (<100); Potassium 4.2 mmol/L (3.3-5.1); Sodium 139 mmol/L (135-145); Total Protein 7.1 g/dL (6.5-8.0); Triglycerides 129 mg/dL (<150)
[2024-08-02 09:36] LABS: Vitamin D 25-OH Total 15.9 ng/mL (>30)
== END 2024-08-02 08:03 | disposition home or self-care (01) ==
LOC: HO.LAB 08:02
PROVIDERS: PCP Internal Medicine; Visit Provider Internal Medicine
DX: E55.9 Vitamin D deficiency, unspecified (principal); M54.2 Cervicalgia; E78.5 Hyperlipidemia, unspecified
CPT/HCPCS: 36415; 80053; 80061; 82306

== ENCOUNTER 2024-08-03 08:08 | Outpatient (AMB) | payer OTHER, SELFPAY ==
--- NOTE | 2024-08-03 08:10 | A.OFFPC_ITS ---
Vital Signs 08/03/24 08:11 Height 5 ft 3 in Weight 149 lb BMI 26.4 BP 136/70 Blood Pressure Location Lt brachial Position Sitting Intake Visit Reasons: annual Intake Note: Patient here for an annual physical exam Tube Buffer Required: No Accompanied by: Self / Same As Patient Allergies aspirin [ASPIRIN] Allergy (Intermediate, Verified 08/03/24 09:01) SOB N/V trazodone [TRAZODONE] Allergy (Intermediate, Verified 08/03/24 09:01) NAUSEA & VOMITING tramadol Adverse Reaction (Intermediate, Verified 08/03/24 09:01) stomach upset Medication List - Last Reconciled 08/03/24 by Ashley Stafford MD acetaminophen 1,000 mg PO Q6H PRN albuterol sulfate 90 mcg/actuation (ProAir RespiClick) 2 inhalations inhalation Q6H PRN 30 days atorvastatin 80 mg PO BEDTIME 90 days bupropion HCl XL 300 mg PO QAM 90 days cholecalciferol (vitamin D3) 25 mcg PO DAILY 90 days doxepin 10 mg PO BEDTIME fluticasone propionate 50 mcg/actuation 1 spray intranasal DAILY 30 days levalbuterol tartrate 45 mcg/actuation 2 inhalations inhalation Q6H 30 days lisinopril 10 mg PO DAILY 90 days omeprazole 20 mg PO DAILY 90 days Tobacco use date assessed: 03/15/24 Dental Screening Dental Screen Date: 03/15/24 HPI HPI Comments History of Present Illness Details The patient is a 58-year-old female presenting with a request for an annual physical examination. The patient has a history of hypercholesterolemia managed with atorvastatin 80 mg, which has resulted in a reduction of cholesterol levels from 295 to 220, and blood pressure control with lisinopril 10 mg. There is also a history of depression with anxiety, for which the patient is on bupropion 300 mg, and insomnia treated with doxepin 10 mg at night. She reports gastrointestinal symptoms, with trazodone causing nausea and vomiting and tramadol leading to stomach pain. The patient has also suffered from GERD, managed with omeprazole 20 mg. A significant part of her past medical history includes surgeries such as appendectomy, left leg laser surgery, knee surgery, and ankle surgery due to prior fractures, and surgical sterilization. Her family history includes a sister with ovarian and colon cancer, and parents with diabetes, hypertension, and heart disease. A recent blood test indicates prediabetes with glucose levels at 106 and vitamin D deficiency with levels at 15.9 ng/mL. The patient does not smoke, consumes beer and wine a few times a month, and maintains a low-carbohydrate diet. - Pap smear: Last done in 2020 and repor silas normal. - Colonoscopy: Last performed in 2014, r esults were normal; a repeat is recommended due to family history. - Mammography: Conducted this year with normal results. - Encouraged to maintain a low-carbohydr ate diet due to prediabetes. - Increase in vitamin D supplementation due to deficiency. - Advised on the importance of exercise and regular physical activity. COUNT INCLUDES [facility] Medical History (Updated 08/03/24 @ 12:43 by Ashley Stafford MD) Mild recurrent major depression Severe recurrent major depression Hypovitaminosis D Unintentional weight loss Lump on face Conductive hearing loss in right ear Hearing loss Insomnia FLORESITA (generalized anxiety disorder) Left foot pain GERD (gastroesophageal reflux disease) Hemorrhoids Anal pain Mild asthma Dyslipidemia Essential hypertension History of broken leg Shortness of breath Surgical History History of laser refractive surgery History of knee surgery History of ankle surgery Hx of appendectomy H/O tubal ligation Family History (Updated 08/03/24 @ 09:07 by Ashley Stafford MD) Father HTN (hypertension) Diabetes CVD (cardiovascular disease) Stroke Mother HTN (hypertension) Diabetes Bone cancer Sister Ovarian cancer Sister Colon cancer, Onset Age: 60 Maternal Aunt Breast cancer Son In good health Son In good health Sister HTN (hypertension) CKD (chronic kidney disease) stage V requiring chronic dialysis Social History Housing: Apartment Alcohol intake: current Alcohol intake frequency: a few times a month Alcohol type: beer and wine Patient Tobacco Use Status: Never used Tobacco e-Cigarette/Vaping Use: Never Used Second Hand Smoke Exposure: No service: No Current occupational status: unemployed Sexual orientation: Straight/Heterosexual Gender identity: Female Cognitive needs: No Hearing needs: No Vision needs: No Female Reproductive History Menstrual Age of Menarche: 12 Questionnaire PHQ-9 Over the last 2 weeks, how often have you been bothered by any of the following problems? 1. Little interest or pleasure in doing things: not at all 2. Feeling down, depressed, or hopeless: not at all 3. Trouble falling or staying asleep, or sleeping too much: several days 4. Feeling tired or having little energy: several days 5. Poor appetite or overeating: not at all 6. Feeling bad about yourself - or that you are a failure or have let yourself or your family down: several days 7. Trouble concentrating on things, such as reading the newspaper or watching television: several days 8. Moving or speaking so slowly that other people could have noticed. Or the opposite - being so fidgety or restless that you have been moving around a lot more than usual: several days 9. Thoughts that you would be better off or of hurting yourself in some way: several days Total score: 6 Depression Screening Interpretation: Positive Depression Screening Follow-up: Existing condition, In treatment, Community Mental Health Worker F/U and Follow- up Visit Requested Depression Screening Done: Yes 15856 - PHQ-9 Billing: Yes Source: Developed by Drs. Johny Wilson, Hortensia Ayala, Tree Barnes and colleagues, with an educational maurilio from [employer]. Thrive Questionnaire Date Thrive assessed: 08/03/24 I am a: Patient What is your living situation today?: I have a steady place to live Within the past 12 months, did the food you bought not last and you didn't have the money to get more?: I choose not to answer this question Within the past 12 months, did you worry whether your food would run out before you got money to buy more?: I choose not to answer this question Do you have trouble paying for medicines?: No Do you have trouble getting transportation to medical appointments?: No Do you have trouble paying your heating and electricity bill?: Yes Do you have trouble taking care of your child, family member or friend?: Yes Do you have trouble with day-to-day activities such as bathing, preparing meals, shopping, managing finances, etc.?: I choose not to answer this question Are you currently unemployed and looking for a job?: I choose not to answer this question THRIVE Score: 1 FLORESITA-7 AMB Questionnaire FLORESITA-7 Date FLORESITA - 7 assessed: 03/15/24 Source: Developed by Drs. Johny Wilson, Hortensia Ayala, Tree Barnes and colleagues, with an educational maurilio from [employer]. Review of Systems Const All systems reviewed & are unremarkable except as noted in HPI and below Card Denies chest pain at rest, Denies chest pain with activity, Denies edema, Denies irregular heart rhythm, Denies claudication, Denies dyspnea, Denies dyspnea on exertion, Denies orthopnea, Denies paroxysmal nocturnal dyspnea and Denies slow heart rate Resp Denies cough, Denies dyspnea and Denies dyspnea on exertion Musc Reports arthralgias, Reports joint swelling and Reports muscle cramps Neuro Denies behavioral changes and Denies lack of coordination Psych Reports anxiety, Denies behavioral changes and Reports depression Physical exam (Primary Care) Vital Signs: Last Vital Signs BP 136/70 08/03/24 08:11 BMI result Body Mass Index 26.4 Tobacco/Smoking Status: Tobacco use Status Tobacco use date assessed 03/15/24 08/03/24 08:16 Patient Tobacco Use Status Never used Tobacco 08/03/24 08:16 e-Cigarette/Vaping Use Never Used 08/03/24 08:16 PHQ-9: PHQ-9 Score PHQ-9: Total score 6 08/03/24 09:18 Depression Screening Interpretation: Positive Depression Screening Follow-up: Existing condition, In treatment, Community Mental Health Worker F/U and Follow- up Visit Requested Thrive Assessment: Date of Thrive Assessment Date Thrive assessed 08/03/24 08/03/24 08:16 HENMT Head: Yes normal to inspection, Yes normocephalic and Yes atraumatic Ears: external ears normal Eyes General: appearance normal, both eyes and all related structures Eyelids: Yes eyelids normal Conjunctivae: conjunctivae normal Neck Neck: Yes normal visual inspection and Yes supple Resp Effort & Inspection: normal respiratory effort Auscultation: clear to auscultation bilaterally Cardio Jugular venous distension: no JVD Rate: regular rate Rhythm: regular rhythm Heart sounds: S1 normal heart sound present and S2 normal heart sound present GI Inspection: Yes normal to inspection Palpation (GI): Soft to palpation and nontender Auscultation: normal bowel sounds Skin General skin exam: no rashes or lesions noted Neuro General: no focal motor deficits Extrem General: Yes full ROM Psych Appearance: grossly normal Office Procedures Flu Questionnaire Does the patient have a severe egg allergy?: No Immunizations Fluarix Triv [id number] (PF) 45 mcg (15 mcg x 3)/0.5 mL IM syringe Performing Provider: Ashley Stafford MD Performing Location[facility] [place] [facility] Documented (not given) by: ANDREW Live on 08/03/24 08:19 Reason Not Given: Patient Refused Coding Level of Care Code Est Pt Level 3 (94084) Est Pt Prev Care 40-64y(72175) Diagnoses Physical exam Z00.00 Mild recurrent major depression F33.0 Family history of colon cancer Z80.0 Hypovitaminosis D E55.9 Additional Codes PHQ-9 - 29412 - PHQ-9 Billing: Yes ([id number]) Time Spent (min) 33 Assessment & Plan Assessment & Plan (1) Physical exam: Code(s): Z00.00 - Encounter for general adult medical examination without abnormal findings Category: Medical (2) Mild recurrent major depression: Code(s): F33.0 - Major depressive disorder, recurrent, mild Category: Medical (3) Family history of colon cancer: Code(s): Z80.0 - Family history of malignant neoplasm of digestive organs Category: Medical (4) Hypovitaminosis D: Code(s): E55.9 - Vitamin D deficiency, unspecified Category: Medical Plan - Hypercholesterolemia: Continue atorvastatin 80 mg; monitor lipid profiles. - Depression with Anxiety: Continue bupropion 300 mg; reassess symptoms at the next visit. - Insomnia: Continue doxepin 10 mg at night. - Hypertension: Lisinopril 10 mg medication will be continued, assess BP at follow-up. - GERD: Maintain omeprazole 20 mg daily as needed. - Vitamin D Deficiency: Increase vitamin D supplementation to 50 micrograms. - Follow-up with colonoscopy recommended due to family history. - Advise a low-carbohydrate diet to manage prediabetes. - Address any necessary assistive devices for mobility concerns. Patient was informed and verbally consented to the use of an ambient scribe for clinic note documentation during this visit. During the examination, I discussed with the patient the findings related to her cholesterol management, prediabetes, and vitamin D deficiency. We reviewed the importance of maintaining a low-carbohydrate diet and included an increase in her vitamin D supplementation. I provided guidance on the significance of adhe rent medication use, particularly with atorvastatin and lisinopril, and emphasized continued monitoring of blood pressure and cholesterol levels. We reviewed the updates on her family history, prompting a colonoscopy due to significant familial cancer occurrences. I also addressed her concerns about limited ambulation, stressing the need for supportive devices if necessary and advised against surgery on her ankle as per her preference. The patient was also advised on the importance of regular exercise. Orders: Orders Influenza [id number] Immunization Today Z23 - Encounter for immunization Medications: New cholecalciferol (vitamin D3) 50 mcg PO DAILY 90 caps 1RF 90 days magnesium oxide 400 mg PO DAILY PRN 90 tabs 0RF muscle cramps 90 days Refilled atorvastatin 80 mg PO BEDTIME 90 tabs 1RF 90 days lisinopril 10 mg PO DAILY 90 tabs 1RF 90 days Discontinued cholecalciferol (vitamin D3) Discontinued Reason: Patient Completed Course 25 mcg PO DAILY 90 days 90 caps 3RF E55.9 - Vitamin D deficiency, unspecified Patient Instructions: - Continue current medication regimen for hypercholesterolemia, depression, insomnia, hypertension, and GERD. - Take vitamin D supplement increased to 50 micrograms. - Adhere to a low-carbohydrate diet, considering prediabetes. - Schedule a colonoscopy as recommended due to family cancer history. - Consider the use of assistive devices to aid mobility if needed. - Avoid unnecessary surgeries unless absolutely required. - Engage in regular exercise and maintain an active lifestyle. - Monitor for any new symptoms and follow up for routine physical examination next year.
[2024-08-03 08:11] VITALS: BP 136/70; BMI 26.4
== END 2024-08-03 09:15 | disposition home or self-care (01) ==
PROVIDERS: PCP Internal Medicine; Visit Provider Internal Medicine
DX: Z00.00 Encounter for general adult medical examination without abnormal findings (principal); F33.0 Major depressive disorder, recurrent, mild; Z80.0 Family history of malignant neoplasm of digestive organs; E55.9 Vitamin D deficiency, unspecified

== ENCOUNTER → 2024-08-03 08:08 | Outpatient (BNVA) | payer OTHER, SELFPAY | PROVIDERS: PCP Internal Medicine; Visit Provider Internal Medicine | DX: Z00.00 Encounter for general adult medical examination without abnormal findings (principal); F33.0 Major depressive disorder, recurrent, mild; E55.9 Vitamin D deficiency, unspecified; Z80.0 Family history of malignant neoplasm of digestive organs | CPT/HCPCS: 96127; 99212; 99396 ==

== ENCOUNTER 2025-01-31 07:56 | Outpatient (AMB) | payer OTHER, SELFPAY ==
--- OUTSIDE RECORDS SUMMARY | 2025-01-31 07:58 | XMS_ITS | Clinical Summary ---
Author Organization 175 [facility] Address 175 [place] [address] Phone Care Team Providers Care Java Analyst Name Role Phone Physician, Pcp Unknown Primary Care Provider Cecelia vailable Allergies Active Allergy Reactions Criticality Noted Date Comments Aspirin 10/12/2023 Tramadol 10/12/2023 Medications ciclopirox (LOPROX) 0.77 % gel Apply 1 Application topically 1 (one) time each day. Active Hospital, Clinic, or Other Facility Administered Medication Ordered Dose Route Frequency Start Date End Date Status lidocaine (PF) (XYLOCAINE-MPF) 1 % injection 0.5 mLIndications:Synovi tis of left ankle .5 mL inj Once PRN Procedure 01/02/2025 01/02/2025 Ended triamcinolone acetonide (KENALOG-40) 40 mg/mL injection 20 mgIndications:Synovi tis of left ankle 20 mg IAtc Once PRN Procedure 01/02/2025 01/02/2025 Ended Encounters Date Type Department Care Team Description 01/02/2025 9:15 AM EDT Office Visit Orthopedic Surgery [facility] [address] [facility] [address] [place] [address] Oleg Morfin, DPM High ankle sprain, left, subsequent encounter (Primary Dx); Synovitis of left ankle from Last 3 Months Social History Tobacco Use Types Packs/Day Years Used Date Smoking Tobacco: Never Assessed Comments Unknown Sex and Gender Information Value Date Recorded Sex Assigned at Not on file Legal Sex Female 3:34 PM EST Gender Identity Not on file Sexual Orientation Not on file Last Filed Vital Signs Vital Sign Reading Time Taken Comments Blood Pressure - - Pulse - - Temperature - - Respiratory Rate - - Oxygen Saturation - - Inhaled Oxygen Concentration - - Weight 65.8 kg (145 lb) 01/02/2025 9:20 AM EDT Height 160 cm (5' 2.99 ) 01/02/2025 9:20 AM EDT Body Mass Index 25.69 01/02/2025 9:20 AM EDT Plan of Treatment Upcoming Encounters Date Type Department Care Team (Late st Contact Info) Description 02/13/2025 3:15 PM EDT Office Visit Orthopedic Surgery - [place] [address] [facility] [address] [place] [phone] Oleg Morfin, DPM [address] [address] Health Maintenance Due Date Last Done Comments Breast Cancer Screening 1965 Cervical Cancer Screening: Pap Smear 1985 Hepatitis B Vaccines (2 of 3 - 19+ 3-dose series) 09/01/2006 08/04/2006 Pneumococcal Vaccine: 50+ Years (1 of 1 - PCV) 2014 Zoster Vaccines (1 of 2) 2014 Cholesterol Screening (Lipid Panel) 08/13/2022 Colorectal Cancer Screening: Colonoscopy 08/13/2022 Depression Screening 08/13/2022 HIV Screening 08/13/2022 Hepatitis C Screening 08/13/2022 Social Influencers of Health Screening 08/13/2022 COVID-19 Vaccine ( - season) 2024 Hypertension/CHF/CAD Annual BMP Blood Test 07/28/2024 Influenza Vaccine (Season Ended) 2025 10/05/2018, 07/10/2017, 06/23/2017, Additional history exists DTaP,Tdap,and Td Vaccines (3 - Td or Tdap) 09/21/2025 09/21/2015, 12/14/2007 RSV Immunization Adult Patients (1 - 1-dose 75+ series) 12/05/2039 HIB Vaccines Aged Out No longer eligi ble based on patient's age to complete this topic HPV Vaccines Aged Out No longer eligi ble based on patient's age to complete this topic Hepatitis A Vaccines Aged Out No long er eligible based on patient's age to complete this topic IPV Vaccines Aged Out No longer eligi ble based on patient's age to complete this topic MMR Vaccines Aged Out No longer eligi ble based on patient's age to complete this topic Meningococcal ACWY Vaccine Aged Out N o longer eligible based on patient's age to complete this topic Meningococcal B Vaccine Aged Out No l onger eligible based on patient's age to complete this topic Pneumococcal Vaccine: Pediatrics (0 to 5 Years) and At-Risk Patients (6 to 64 Years) Aged Out No longer eligible based on patient's age to complete this topic RSV Immunization Patients Under 20 months Aged Out No longer eligible based on patient's age to complete this topic Varicella Vaccines Aged Out No longer eligible based on patient's age to complete this topic Procedures Procedure Name Priority Date/Time Associated Diagnosis Comments INJECTION TENDON OR LIGAMENT Routine 01/02/2025 9:15 AM EDT Synovitis of left ankle from Last 3 Months Results * Injection tendon or ligament (01/02/2025 9:15 AM EDT) Narrative Oleg Morfin DPM - 01/02/2025 9:15 AM EDT Oleg Morfin DPM ? 01/02/2025 12:55 PM Injection tendon or ligament Indications: pain Details: 25 G needle Medications: 0.5 mL lidocaine (PF) 1 %; 20 mg triamcinolone acetonide 40 mg/mL Informed Consent: ??Site: ??Foot ligament tendon Oleg Morfin DPM IN CLINIC/BEDSIDE ORDERAB LES Final Result from Last 3 Months Insurance [facility] [place] [phone] Care Teams Java Analyst Relationship Specialty Start Date End Date Physician, Pcp Unknown PCP - General 07/27/24
--- NOTE | 2025-01-31 08:04 | A.OFFPC_ITS ---
Vital Signs 01/31/25 08:05 Height 5 ft 3 in Weight 146 lb BMI 25.9 BP 150/92 H Blood Pressure Location Lt brachial Position Sitting Intake Visit Reasons: bp,depression Intake Note: Patient here for a follow up BP, Depression, c/o forgetfulness Medical Office Professional Instructor Required: No Accompanied by: Self / Same As Patient Allergies aspirin [ASPIRIN] Allergy (Intermediate, Verified 01/31/25 08:19) SOB N/V trazodone [TRAZODONE] Allergy (Intermediate, Verified 01/31/25 08:19) NAUSEA & VOMITING tramadol Adverse Reaction (Intermediate, Verified 01/31/25 08:19) stomach upset Medication List - Last Reconciled 01/31/25 by Ashley Stafford MD acetaminophen 1,000 mg PO Q6H PRN albuterol sulfate 90 mcg/actuation (ProAir RespiClick) 2 inhalations inhalation Q6H PRN 30 days atorvastatin 80 mg PO BEDTIME 90 days bupropion HCl XL 300 mg PO QAM 90 days cholecalciferol (vitamin D3) 50 mcg PO DAILY 90 days doxepin 10 mg PO BEDTIME fluticasone propionate 50 mcg/actuation 1 spray intranasal DAILY 30 days levalbuterol tartrate 45 mcg/actuation 2 inhalations inhalation Q6H 30 days lisinopril 10 mg PO DAILY 90 days magnesium oxide 400 mg PO DAILY PRN 90 days omeprazole 20 mg PO DAILY 90 days Tobacco use date assessed: 01/31/25 Dental Screening Dental Screen Date: 01/31/25 Did you have a dental visit in the last 12 months?: No Did you have a dental problem in the last 6 months where you did not have access to dental care?: No Was dental information given to patient?: Patient has dentist HPI HPI Comments History of Present Illness Details The patient is a 59-year-old female presenting with management concerns for her chronic diseases. Her existing conditions include hypercholesterolemia, essential hypertension, depression, and prediabetes, which have been monitored over time. Her depression has shown slight improvement with medication adjustments. Despite some reduction, hypercholesterolemia remains a concern, having previously been recorded high on lab results. The patient also maintains a history of controlled hyperglucose tolerance, with sugar levels historically at 106 mg/dL. Elevated blood pressure readings were noted today. The patient reports periodic agitation but denies any chest pain or dyspnea. Known drug allergies include aspirin, as well as adverse reactions to Trazodone and Tramadol. Given the family history of Alzheimer's Disease, with two sisters from the condition, the patient worries about her memory issues, prompting consideration for a neurology referral. [facility] Medical History (Updated 01/31/25 @ 10:01 by Ashley Stafford MD) Mild recurrent major depression Severe recurrent major depression Hypovitaminosis D Unintentional weight loss Lump on face Conductive hearing loss in right ear Hearing loss Insomnia FLORESITA (generalized anxiety disorder) Left foot pain GERD (gastroesophageal reflux disease) Hemorrhoids Anal pain Mild asthma Dyslipidemia Essential hypertension History of broken leg Shortness of breath Surgical History History of laser refractive surgery History of knee surgery History of ankle surgery Hx of appendectomy H/O tubal ligation Family History Father HTN (hypertension) Diabetes CVD (cardiovascular disease) Stroke Mother HTN (hypertension) Diabetes Bone cancer Sister Ovarian cancer Sister Colon cancer, Onset Age: 60 Maternal Aunt Breast cancer Son In good health Son In good health Sister HTN (hypertension) CKD (chronic kidney disease) stage V requiring chronic dialysis Social History Housing: Apartment Alcohol intake: current Alcohol intake frequency: a few times a month Alcohol type: beer and wine Patient Tobacco Use Status: Never used Tobacco e-Cigarette/Vaping Use: Never Used Second Hand Smoke Exposure: No service: No Current occupational status: unemployed Sexual orientation: Straight/Heterosexual Gender identity: Female Cognitive needs: No Hearing needs: No Vision needs: No Female Reproductive History Menstrual Age of Menarche: 12 Questionnaire PHQ-9 Over the last 2 weeks, how often have you been bothered by any of the following problems? 1. Little interest or pleasure in doing things: not at all 2. Feeling down, depressed, or hopeless: several days 3. Trouble falling or staying asleep, or sleeping too much: several days 4. Feeling tired or having little energy: not at all 5. Poor appetite or overeating: not at all 6. Feeling bad about yourself - or that you are a failure or have let yourself or your family down: not at all 7. Trouble concentrating on things, such as reading the newspaper or watching television: more than half the days 8. Moving or speaking so slowly that other people could have noticed. Or the opposite - being so fidgety or restless that you have been moving around a lot more than usual: not at all 9. Thoughts that you would be better off or of hurting yourself in some way: not at all Total score: 4 Depression Screening Interpretation: Positive Depression Screening Follow-up: Existing condition, In treatment and Follow-up Visit Requested Depression Screening Done: Yes 19333 - PHQ-9 Billing: Yes Source: Developed by Drs. Johny Wilson, Hortensia Ayala, Tree Barnes and colleagues, with an educational maurilio from [employer]. Thrive Questionnaire Date Thrive assessed: 01/31/25 I am a: Patient What is your living situation today?: I choose not to answer this question Within the past 12 months, did the food you bought not last and you didn't have the money to get more?: I choose not to answer this question Within the past 12 months, did you worry whether your food would run out before you got money to buy more?: I choose not to answer this question Do you have trouble paying for medicines?: No Do you have trouble getting transportation to medical appointments?: No Do you have trouble paying your heating and electricity bill?: Yes Do you have trouble taking care of your child, family member or friend?: No Do you have trouble with day-to-day activities such as bathing, preparing meals, shopping, managing finances, etc.?: No Are you currently unemployed and looking for a job?: No Are you interested in more education?: No Please select the resources that you would like help with: None Currently or been in a relationship where the following occur: No concerns reported THRIVE Score: 1 AUDIT C Alcohol Use Questionnaire (AUDIT-C) 1. How often do you have a drink containing alcohol?: Monthly or less 2. How many drinks containing alcohol do you have on a typical day when you are drinking?: 1 or 2 3. How often do you have six or more drinks on one occasion?: Never Total Score: 1 Score Reviewed/Action Taken: No FLORESITA-7 AMB Questionnaire FLORESITA-7 Date FLORESITA - 7 assessed: 01/31/25 Feeling nervous, anxious, or on edge: 2 = More than half the days Not being able to stop or control worryin = Not at all Worrying too much about different things: 1 = Several days Trouble relaxin = Not at all Being so restless that it is hard to sit still: 1 = Several days Becoming easily annoyed or irritable: 2 = More than half the days Feeling afraid as if something awful might happen: 1 = Several days Total FLORESITA-7 score (0-4 normal; 5-9 mild; 10-14 moderate; 15-21 severe): 7 Source: Developed by Drs. Johny Wilson, Hortensia Ayala, Tree Barnes and colleagues, with an educational maurilio from [employer]. FLORESITA-7 Assessment Billing FLORESITA-7 Assessment Tool: FLORESITA-7 Assessment 02310 Review of Systems Const All systems reviewed & are unremarkable except as noted in HPI and below Card Denies chest pain at rest, Denies chest pain with activity, Denies edema, Denies irregular heart rhythm, Denies claudication, Denies dyspnea, Denies dyspnea on exertion, Denies orthopnea, Denies paroxysmal nocturnal dyspnea and Denies slow heart rate Resp Denies cough, Denies dyspnea and Denies dyspnea on exertion Physical exam (Primary Care) Vital Signs: Last Vital Signs BP 150/92 H 01/31/25 08:05 BMI result Body Mass Index 25.9 Tobacco/Smoking Status: Tobacco use Status Tobacco use date assessed 01/31/25 01/31/25 08:11 Patient Tobacco Use Status Never used Tobacco 01/31/25 08:09 e-Cigarette/Vaping Use Never Used 01/31/25 08:09 PHQ-9: PHQ-9 Score PHQ-9: Total score 4 01/31/25 08:28 Depression Screening Interpretation: Positive Depression Screening Follow-up: Existing condition, In treatment and Follow-up Visit Requested Thrive Assessment: Date of Thrive Assessment Date Thrive assessed 01/31/25 01/31/25 08:09 Currently or been in a relationship where the following occur: No concerns reported Resp Effort & Inspection: normal respiratory effort Auscultation: clear to auscultation bilaterally Cardio Jugular venous distension: no JVD Rate: regular rate Rhythm: regular rhythm Heart sounds: S1 normal heart sound present and S2 normal heart sound present Extrem General: Yes full ROM Results AMB Urinalysis, Automated UA Leukoctes 0 Raymundo/uL Last Edit by Carlita Ayoub, A on 01/31/25 08:17 UA Nitrite Negative Last Edit by Carlita Ayoub, A on 01/31/25 08:17 UA Urobilinogen 0 mg/dL Last Edit by Carlita Ayoub, A on 01/31/25 08:17 UA Protein 0 mg/dL Last Edit by Ashleyisabelcandace Ayoub, A on 01/31/25 08:17 UA pH 6.0 Last Edit by Carlita Ayoub, A on 01/31/25 08:17 UA Blood 0 Rene/uL Last Edit by Carlita Ayoub, A on 01/31/25 08:17 UA Specific [place] 1.015 Last Edit by Carlita Ayoub, A on 01/31/25 08 :17 UA Ketone Negative Last Edit by Ashleyisabelcandace Ayoub, A on 01/31/25 08:17 UA Bilirubin 0 mg/dL Last Edit by Carlita Ayoub, A on 01/31/25 08:17 UA Glucose 0 mg/dL Last Edit by Carlita Ngoillo, [facility] on 01/31/25 08:17 Results Reviewed Results Reviewed: Laboratory Last Values Urine pH (Auto) 6.0 01/31/25 08:15 Specific [place] (Auto) 1.015 01/31/25 08:15 Urine Protein (Auto) 0 mg/dL 01/31/25 08:15 Glucose (UA)(Auto) 0 mg/dL 01/31/25 08:15 Urine Ketones (Auto) Negative 01/31/25 08:15 Urine Blood (Auto) 0 Rene/uL 01/31/25 08:15 Urine Nitrite (Auto) Negative 01/31/25 08:15 Urine Bilirubin (Auto) 0 mg/dL 01/31/25 08:15 Urine Urobilinogen (Auto) 0 mg/dL 01/31/25 08:15 Leukocyte Esterase (Auto) 0 Raymundo/uL 01/31/25 08:15 Coding Level of Care Code Est Pt Level 4 (11474) Complex EM visit Add On G2211 Diagnoses Memory loss R41.3 Impaired glucose tolerance R73.02 Mild recurrent major depression F33.0 Hypovitaminosis D E55.9 Essential hypertension I10 Dyslipidemia E78.5 Insomnia G47.00 Additional Codes FLORESITA-7 Assessment Billing - FLORESITA-7 Assessment Tool: FLORESITA-7 Assessment 60137 ([id number]) PHQ-9 - 60812 - PHQ-9 Billing: Yes ([id number]) Time Spent (min) 23 Assessment & Plan Assessment & Plan (1) Memory loss: Code(s): R41.3 - Other amnesia Category: Medical (2) Impaired glucose tolerance: Code(s): R73.02 - Impaired glucose tolerance (oral) Category: Medical (3) Mild recurrent major depression: Code(s): F33.0 - Major depressive disorder, recurrent, mild Category: Medical (4) Hypovitaminosis D: Code(s): E55.9 - Vitamin D deficiency, unspecified Category: Medical (5) Essential hypertension: Code(s): I10 - Essential (primary) hypertension Category: Medical (6) Dyslipidemia: Code(s): E78.5 - Hyperlipidemia, unspecified Category: Medical (7) Insomnia: Code(s): G47.00 - Insomnia, unspecified Category: Medical Plan The patient?s chronic conditions, including essential hypertension and hypercholesterolemia, will be managed with ongoing medications and routine ibrahima toring. For hypertension, I will recheck blood pressure in three weeks and assess the need for further adjustments. Atorvastatin remains prescribed for her cholesterol management, while evaluating adherence and effectivity. Additionally, prediabetes will be monitored with a focus on lifestyle modifications to control glucose levels. Concerns regarding early signs of Alzheimer's Disease will be explored with a referral to neurology and scheduling of an MRI for cognitive assessment. We will maintain current medications including vitamin D, Tylenol, lisinopril, magnesium, and omeprazole while obs erving for any drug sensitivities. Patient was informed and verbally consented to the use of an ambient scribe for clinic note documentation during this visit. I discussed the patient's chronic diagnosis management, emphasizing medication adherence and lifestyle adjustments. We reviewed the adverse reactions to medications, confirming aspirin allergy and reactions to Trazodone and Tramadol. The benefits of atorvastatin for cholesterol were outlined, as was the need for regular blood pressure checks. For suspected Alzheimer's Disease, I explained the importance of a neurology evaluation and MRI to understand cognitive concerns better. I assured the patient that her symptoms and family history warrant investigation but emphasized the importance of early intervention. Orders: Orders Vitamin D 25-OH Total 6 Months E55.9 - Vitamin D deficiency, unspecified AMB Urinalysis Automated Today R30.0 - Dysuria Lipid Panel 6 Months E78.5 - Hyperlipidemia, unspecified Comprehensive [place]. Panel Fast 6 Months R73.02 - Impaired glucose tolerance (oral) Referrals Neurology Referral R41.3 - Other amnesia Medications: Changed From doxepin 10 mg PO BEDTIME To doxepin 10 mg PO BEDTIME 90 caps 0RF 90 days Patient Instructions: - Continue taking all prescribed medications as directed. - Monitor blood pressure regularly and inform me if there are significant changes. - Follow a low-cholesterol, balanced diet and engage in regular physical activity. - Keep track of sugar levels and maintain a diet for prediabetes management. - Attend assigned neurology appointment and MRI for cognitive evaluation. - Return in three weeks for blood pressure check. - Report any new or worsening symptoms promptly.
[2025-01-31 08:05] VITALS: BP 150/92; BMI 25.9
== END 2025-01-31 08:32 | disposition home or self-care (01) ==
LOC: HO.HMCH 07:57
PROVIDERS: PCP Internal Medicine; Visit Provider Internal Medicine
DX: R41.3 Other amnesia (principal); R73.02 Impaired glucose tolerance (oral); F33.0 Major depressive disorder, recurrent, mild; E55.9 Vitamin D deficiency, unspecified; I10 Essential (primary) hypertension; E78.5 Hyperlipidemia, unspecified; G47.00 Insomnia, unspecified; R30.0 Dysuria

== ENCOUNTER → 2025-01-31 07:56 | Outpatient (BNVA) | payer OTHER, SELFPAY | PROVIDERS: PCP Internal Medicine; Visit Provider Internal Medicine | DX: I10 Essential (primary) hypertension (principal); E78.00 Pure hypercholesterolemia, unspecified; R41.3 Other amnesia; R73.02 Impaired glucose tolerance (oral); F33.0 Major depressive disorder, recurrent, mild; E55.9 Vitamin D deficiency, unspecified; E78.5 Hyperlipidemia, unspecified; G47.00 Insomnia, unspecified; R73.03 Prediabetes; R30.0 Dysuria | CPT/HCPCS: 81003; 96127; 99212 ==

== ENCOUNTER 2025-02-01 08:28 | Outpatient (REF) | payer OTHER, SELFPAY ==
--- OUTSIDE RECORDS SUMMARY | 2025-02-01 09:49 | XMS_ITS | Clinical Summary ---
Author Organization 175 [facility] Address [address] [place] [address] Phone Care Team Providers Care Machine Setter And Repairer Name Role Phone Physician, Pcp Unknown Primary Care Provider Cecelia vailable Allergies Active Allergy Reactions Criticality Noted Date Comments Aspirin 10/12/2023 Tramadol 10/12/2023 Medications ciclopirox (LOPROX) 0.77 % gel Apply 1 Application topically 1 (one) time each day. Active Encounters Date Type Department Care Team Description 01/02/2025 9:15 AM EDT Office Visit Orthopedic [facility] [address] [phone] Oleg Morfin DPM High ankle sprain, left, subsequent encounter [...] Upcoming Encounters Date Type Department Care Team ([facility] st Contact Info) Description 02/13/2025 3:15 PM EDT Office Visit Orthopedic Surgery [facility] [address] [phone] Oleg Morfin, DPM 175 [facility] [address] [place] [address] Health Maintenance Due Date Last Done Comments [...] Final Result from Last [address] [place] [id number] [facility] Care Teams Machine Setter And Repairer Relationship Specialty Start Date End Date Physician, Pcp Unknown PCP - General 07/27/24
== END 2025-02-01 08:29 | disposition home or self-care (01) ==
LOC: HO.MAMMO 08:28
PROVIDERS: PCP Internal Medicine; Visit Provider Internal Medicine
DX: Z12.31 Encounter for screening mammogram for malignant neoplasm of breast (principal)
CPT/HCPCS: 77063; 77067

== ENCOUNTER → 2025-02-01 09:00 | Outpatient (BNV) | payer OTHER, SELFPAY | PROVIDERS: PCP Internal Medicine; Visit Provider Internal Medicine | DX: Z12.31 Encounter for screening mammogram for malignant neoplasm of breast (principal) | CPT/HCPCS: 77063; 77067 ==

== ENCOUNTER → 2025-02-17 15:06 | Outpatient (BNVA) | payer OTHER, SELFPAY | PROVIDERS: PCP Internal Medicine; Visit Provider Internal Medicine ==

== ENCOUNTER 2025-06-19 08:48 | Outpatient (AMB) | payer OTHER, SELFPAY ==
[2025-06-19 08:56] VITALS: BP 158/82; PULSE 85; O2SAT 97; BMI 25.4
--- NOTE | 2025-06-19 08:56 | A.OFFVIS_ITS ---
Vital Signs 06/19/25 08:56 Height 5 ft 3 in Weight 143 lb 8 oz BMI 25.4 BP 158/82 H Blood Pressure Location Rt brachial Position Sitting Pulse 85 Pulse Source Pulse Oximeter Pulse Oximetry (%) 97 Oxygen Delivery Method Room Air Intake Visit Reasons: INP-Other Amnesia Intake Note: Amnesia Respite Provider Required: Yes Respite Provider Name: IPad when MD comes Accompanied by: Self / Same As Patient Allergies aspirin (ASPIRIN) Allergy (Intermediate, Verified 06/19/25 08:56) SOB N/V trazodone (TRAZODONE) Allergy (Intermediate, Verified 06/19/25 08:56) NAUSEA & VOMITING tramadol Adverse Reaction (Intermediate, Verified 06/19/25 08:56) stomach upset Medication List - Last Reconciled 06/19/25 by Patti Hooks MD acetaminophen 1,000 mg PO Q6H PRN albuterol sulfate 90 mcg/actuation (ProAir RespiClick) 2 inhalations inhalation Q6H PRN 30 days atorvastatin 80 mg PO BEDTIME 90 days bupropion HCl XL 300 mg PO QAM 90 days cholecalciferol (vitamin D3) 50 mcg PO DAILY 90 days doxepin 10 mg PO BEDTIME 90 days fluticasone propionate 50 mcg/actuation 1 spray intranasal DAILY 30 days levalbuterol tartrate 45 mcg/actuation 2 inhalations inhalation Q6H 30 days lisinopril 10 mg PO DAILY 90 days magnesium oxide 400 mg PO DAILY PRN 90 days omeprazole 20 mg PO DAILY 90 days HPI Comments Details: 59y/o female comes for evaluation of memory issues for 2-3 years now.[id number] - [facility] . She frequently misplaces, goes to rooms and does not know why she went there, trouble with names, trouble with keeping appointments ,trouble with conversations.She drives with no issues. she cooks , watches TV and has forgot the food in the stove. she has depression and anxiety - not well controlled. she cries during this interview. She has trouble falling asleep and staying asleep. she reports that 2 sisters, cousin from Dementia- 63 and 66 . she snores sometimes and has excessive daytime sleepiness.she is able to take care of her finances. [facility], [facility] Medical History (Updated 06/19/25 @ 09:56 by Patti Hooks MD) Cognitive impairment Hypersomnia Snoring Mild recurrent major depression Severe recurrent major depression Hypovitaminosis D Unintentional weight loss Lump on face Conductive hearing loss in right ear Hearing loss Insomnia FLORESITA (generalized anxiety disorder) Left foot pain GERD (gastroesophageal reflux disease) Hemorrhoids Anal pain Mild asthma Dyslipidemia Essential hypertension History of broken leg Shortness of breath Surgical History History of laser refractive surgery History of knee surgery History of ankle surgery Hx of appendectomy H/O tubal ligation Family History Father HTN (hypertension) Diabetes CVD (cardiovascular disease) Stroke Mother HTN (hypertension) Diabetes Bone cancer Sister Ovarian cancer Sister Colon cancer, Onset Age: 60 Maternal Aunt Breast cancer Son In good health Son In good health Sister HTN (hypertension) CKD (chronic kidney disease) stage V requiring chronic dialysis Social History Housing: Apartment Alcohol intake: current Alcohol intake frequency: a few times a month Alcohol type: beer and wine Patient Tobacco Use Status: Never used Tobacco e-Cigarette/Vaping Use: Never Used Second Hand Smoke Exposure: No service: No Current occupational status: unemployed Sexual orientation: Straight/Heterosexual Gender identity: Female Cognitive needs: No Hearing needs: No Vision needs: No Female Reproductive History Menstrual Age of Menarche: 12 Physical Exam Vital Signs: Last Vital Signs Pulse 85 06/19/25 08:56 BP 158/82 H 06/19/25 08:56 Pulse Ox 97 06/19/25 08:56 Oxygen Delivery Method Room Air 06/19/25 08:56 BMI result Body Mass Index 25.4 Const General: cooperative, healthy appearing, comfortable, no acute distress and anxi ous Nutritional Appearance: average body habitus Orientation/consciousness: patient oriented x3 Eyes Pupils: Equal, round and reactive pupils present Neuro General: patient oriented x3, tone normal, moves all extremities and no focal motor deficits Cranial nerves: Yes Facial sensation intact/muscles of mastication intact, Yes Equal, round and reactive pupils present, Yes Bilaterally intact EOM present, Yes Nystagmus not present, Yes Normal facial strength present, Yes Midline tongue present, Yes Symmetric palate elevation present and Yes Ability to bilaterally elevate shoulders present Cognition (Neuro): abnormal cognition Gait exam (Neuro): Antalgic gait present Motor exam (neuro): 5/5 motor strength present throughout and Normal motor muscle tone present throughout Deep tendon reflexes (DTR's): Right triceps reflex intensity grade: 1+, Left triceps reflex intensity grade: 1+, Rt Biceps (C5, C6): 1+, Left biceps reflex intensity grade: 1+, Right brachioradialis reflex intensity grade: 1+, Left brachioradialis reflex intensity grade: 1+, Right patellar reflex intensity grade: 1+ and Left patellar reflex intensity grade: 1+ Coordination: [id number] test normal Assessment & Plan Assessment & Plan (1) Cognitive impairment: Comment: ? early dementia ? mood related Code(s): R41.89 - Other symptoms and signs involving cognitive functions and awareness Category: Medical (2) Snoring: Code(s): R06.83 - Snoring Category: Medical (3) Hypersomnia: Code(s): G47.10 - Hypersomnia, unspecified Category: Medical Plan MRI Brain Labs- Vit B12 TSH ESR CBC CMP SPIKE Sleep study to r/o sleep apnea F/u psychiatry for stabilization of mood will consider PET AMYLOID Orders: Orders Erythrocyte Sedimentation Rate Today R41.3 - Other amnesia MR brain wo con w neuroquant Today R41.3 - Other amnesia TSH reflex Free T4 Today R41.3 - Other amnesia Vitamin B12 and Folate Today R41.3 - Other amnesia SPIKE Reflex Titer and Pattern Today R41.3 - Other amnesia Vitamin D 25-OH (D2 and D3) Today R41.3 - Other amnesia Complete Blood Count Auto Diff Today R41.3 - Other amnesia Comprehensive Met. Panel Today R41.3 - Other amnesia RT home sleep study Today G47.10 - Hypersomnia, unspecified, R06.83 - Snoring Coding Level of Care Code New Pt Level 4 (05400) Complex EM visit Add On G2211 Diagnoses Cognitive impairment R41.89 Snoring R06.83 Hypersomnia G47.10 MOCA Assessment Visuospatial/Executive Was patient able to complete Number to Letter matching?: No Was the patient able to copy the cube?: Yes Clock: Contour: Yes Clock: Numbers: No Clock: Hands: Yes Naming Was the patient able name the Lion?: Yes Was the patient able to name the Rhinoceros?: Yes Was the patient able to name the Camel?: Yes Memory 1st Trial - Select the words the patient was able to remember: Face and Velvet 2nd Trial - Select the words the patient was able to remember: Face, Velvet, Jain, Alize and Red Attention Was the patient able to repeat [2 1 8 5 4] in forward order?: Yes Was the patient able to repeat [7 4 2] in backward order?: Yes Was the patient able to identify the A's with <2 errors?: Yes Serial 7 subtraction starting at 100 result: 0 correct (0 points) Language Select the phrases the patient was able to repeat: I only know that Randolph is the one to help today and The cat always hid under the couch when dogs were in the room Was the patient able to name more than 11 words that start with the letter F?: Yes Abstraction Select all that the patient was able to find the similarity: Train - Bicycle and Watch - Ruler Delayed Recall No Cues - Select the words the patient was able to remember: Red Category Cue - Select the words the patient was able to remeber: Red Multi Choice Cue - Select the words the patient was able to remember: Velvet, Alize and Red Orientation Select the following items that the patient knew: Date, Month, Year, Day, Place and City Score MOCA Score (>26 out of 30 is Normal): 21
--- OUTSIDE RECORDS SUMMARY | 2025-06-19 09:37 | XMS_ITS | Clinical Summary ---
Author Organization [address] [facility] Address [address] [place] [address] Phone Care Team Providers Care Computer Systems Auditor Name Role Phone Physician, Pcp Unknown Primary Care Provider Cecelia vailable Allergies Active Allergy Reactions Criticality Noted Date Comments Aspirin 10/12/2023 Tramadol 10/12/2023 Medications ciclopirox (LOPROX) 0.77 % gel Apply 1 Application topically 1 (one) time each day. Active Social History Tobacco Use Types Packs/Day Years [...] 01/02/2025 9:20 AM EDT Plan of Treatment Health Maintenance Due Date Last Done Comments Breast Cancer Screening 1965 Colorectal Cancer Screening: Colonoscopy 1965 Cervical Cancer Screening: Pap Smear 1985 Hepatitis B Vaccines (2 of 3 - 19+ 3-dose series) 09/01/2006 08/04/2006 Pneumococcal Vaccine: 50+ Years (1 of 1 - PCV) 2014 Zoster Vaccines (1 of 2) 2014 Cholesterol Screening (Lipid Panel) 08/13/2022 HIV Screening 08/13/2022 Hepatitis C Screening 08/13/2022 Social Influencers of Health Screening 08/13/2022 Hypertension/CHF/CAD Annual BMP Blood Test 07/28/2024 Depression Screening 09/14/2024 COVID-19 Vaccine (2023- season) 2025 Influenza Vaccine (#1) 2025 9, 07/10/2017, 06/23/2017, Additional history exists DTaP,Tdap,and Td [...] on patient's age to complete this topic [place] [address] [address] [place] [phone] [facility] [facility] Care Teams Computer Systems Auditor Relationship Specialty Start Date End Date Physician, Pcp Unknown PCP - General 07/27/24
== END 2025-06-19 09:42 | disposition home or self-care (01) ==
LOC: HO.HSMS 08:49
PROVIDERS: PCP Internal Medicine; Visit Provider Psychiatry & Neurology Neurology
DX: R41.89 Other symptoms and signs involving cognitive functions and awareness (principal); R06.83 Snoring; G47.10 Hypersomnia, unspecified
CPT/HCPCS: 99204

== ENCOUNTER → 2025-06-19 08:48 | Outpatient (BNVA) | payer OTHER, SELFPAY | PROVIDERS: PCP Internal Medicine; Visit Provider Psychiatry & Neurology Neurology | DX: R41.89 Other symptoms and signs involving cognitive functions and awareness (principal); R06.83 Snoring; G47.10 Hypersomnia, unspecified | CPT/HCPCS: 99202 ==

== ENCOUNTER 2025-07-23 14:43 | Outpatient (REF) | payer OTHER, SELFPAY ==
--- NOTE | ~2025-07-23 | MR_ITS ---
CLINICAL HISTORY: R41.3 - Other amnesia MR brain without IV contrast Comparison: None provided Findings: Moderate patchy deep white matter signals of bilateral cerebral hemisphere and central lindsay, hyperintense on T2 and FLAIR, no diffusion restriction, some appears involving callosal septal interface and juxtacortical U fibers. No abnormal diffusion restriction. No intracranial hemorrhage or extra-axial fluid collection. No intracranial mass, positive mass-effect, midline shift or hydrocephalus. Normal flow void within the intracranial vessels. Likely old ischemic lacunar infarct lindsay on the left. Visualized orbits, paranasal sinuses and mastoid air cells are unremarkable. Calvarium and superficial soft tissue are unremarkable. Impression: Moderate cerebral deep white matter signals, although most frequently ascribed to chronic small vessel ischemic disease, the distribution is more concerning for demyelinating disease, recommend neurology follow-up, MRI brain with IV contrast and MRI evaluation of remaining neural axis. This document has been electronically signed by: Mira Godfrey MD on 07/25/2025 16:15:48
--- OUTSIDE RECORDS SUMMARY | 2025-07-23 14:53 | XMS_ITS | Clinical Summary ---
Author Organization [address] [facility] Address [address] [place] [address] Phone Care Team Providers Care Hull Drafter Name Role Phone Physician, Pcp Unknown Primary [...] patient's age to complete this topic [place] [id number] [facility] [place] [address] Care Teams Hull Drafter Relationship Specialty Start Date End Date Physician, Pcp Unknown PCP - General 07/27/24
== END 2025-07-23 14:44 | disposition home or self-care (01) ==
LOC: HO.MRI 14:43
PROVIDERS: PCP Internal Medicine; Visit Provider Psychiatry & Neurology Neurology
DX: R41.3 Other amnesia (principal)
CPT/HCPCS: 70551; 76377

== ENCOUNTER → 2025-07-23 14:51 | Outpatient (BNV) | payer OTHER, SELFPAY | PROVIDERS: PCP Internal Medicine; Visit Provider Radiology Diagnostic Radiology | DX: R41.3 Other amnesia (principal) | CPT/HCPCS: 70551 ==

== ENCOUNTER 2025-08-08 08:02 | Outpatient (AMB) | payer OTHER, SELFPAY ==
--- OUTSIDE RECORDS SUMMARY | 2025-08-08 08:15 | XMS_ITS | Clinical Summary ---
Author Organization [address] [facility] Address [address] [place] [address] Phone Care Team Providers Care Wild Life Photographer Name Role Phone Physician, Pcp Unknown Primary [...] Test 07/28/2024 Depression Screening 09/14/2024 COVID-19 Vaccine ( - 2024- season) 2025 Influenza Vaccine (#1) 2025 9, [...] patient's age to complete this topic [place] [phone] [facility] Care Teams Wild Life Photographer Relationship Specialty Start Date End Date Physician, Pcp Unknown PCP - General 07/27/24
[2025-08-08 09:01] VITALS: BP 140/80; PULSE 85; TEMP 36.2; O2SAT 99; BMI 25.2
--- NOTE | 2025-08-08 09:01 | MHC.PC.OV ---
Vital Signs 08/08/25 09:01 Height 5 ft 3 in Weight 142 lb 8 oz BMI 25.2 BP 140/80 H Blood Pressure Location Lt brachial Position Sitting Pulse 85 Pulse Source Pulse Oximeter Temp 97.1 F Temp Source Temporal Artery Scan Pulse Oximetry (%) 99 Oxygen Delivery Method Room Air Intake Visit Reasons: pe Costume Draper Required: No Accompanied by: Self / Same As Patient Allergies aspirin (ASPIRIN) Allergy (Intermediate, Verified 08/08/25 09:01) SOB N/V trazodone (TRAZODONE) Allergy (Intermediate, Verified 08/08/25 09:01) NAUSEA & VOMITING tramadol Adverse Reaction (Intermediate, Verified 08/08/25 09:01) stomach upset Tobacco use date assessed: 08/08/25 Dental Screening Dental Screen Date: 08/08/25 Did you have a dental visit in the last 12 months?: No Did you have a dental problem in the last 6 months where you did not have access to dental care?: No HPI HPI Comments History of Present Illness Details The patient is a 59 year old individual presenting for an annual physical exam. The patient has a medical history of hypertension, depression managed with bupropion, and insomnia managed with doxepin. Current medications include atorvastatin 80 mg, bupropion, vitamin D, doxepin, a nasal spray, an inhaler, and Tylenol. The patient has known allergies to aspirin, trazodone, and tramadol. Mammogram and Pap smear are up-to-date. Flu vaccine was declined. Tdap up-to-date. Past surgical history is significant for laser surgery on the left leg, knee surgery, ankle surgery, an appendectomy, and tubal ligation. A follow-up with neurology has been recommended. - The patient presented for an annual physical exam. - A referral for a colonoscopy will be provided. - Laboratory tests will be ordered. - A neurology follow-up is recommended. -referred to vascular surgery for venous insufficiency [facility] Medical History (Updated 08/08/25 @ 09:34 by Ashley Stafford MD) Cognitive impairment Hypersomnia Snoring Mild recurrent major depression Severe recurrent major depression Hypovitaminosis D Unintentional weight loss Lump on face Conductive hearing loss in right ear Hearing loss Insomnia FLORESITA (generalized anxiety disorder) Left foot pain GERD (gastroesophageal reflux disease) Hemorrhoids Anal pain Mild asthma Dyslipidemia Essential hypertension History of broken leg Shortness of breath Surgical History History of laser refractive surgery History of knee surgery History of ankle surgery Hx of appendectomy H/O tubal ligation Family History Father HTN (hypertension) Diabetes CVD (cardiovascular disease) Stroke Mother HTN (hypertension) Diabetes Bone cancer Sister Ovarian cancer Sister Colon cancer, Onset Age: 60 Maternal Aunt Breast cancer Son In good health Son In good health Sister HTN (hypertension) CKD (chronic kidney disease) stage V requiring chronic dialysis Social History Housing: Apartment Alcohol intake: current Alcohol intake frequency: a few times a month Alcohol type: beer and wine Patient Tobacco Use Status: Never used Tobacco e-Cigarette/Vaping Use: Never Used Second Hand Smoke Exposure: No service: No Current occupational status: unemployed Sexual orientation: Straight/Heterosexual Gender identity: Female Cognitive needs: No Hearing needs: No Vision needs: No Female Reproductive History Menstrual Age of Menarche: 12 Questionnaire Thrive Questionnaire Date Thrive assessed: 01/31/25 I am a: Patient What is your living situation today?: I choose not to answer this question Within the past 12 months, did the food you bought not last and you didn't have the money to get more?: I choose not to answer this question Within the past 12 months, did you worry whether your food would run out before you got money to buy more?: I choose not to answer this question Do you have trouble paying for medicines?: No Do you have trouble getting transportation to medical appointments?: No Do you have trouble paying your heating and electricity bill?: Yes Do you have trouble taking care of your child, family member or friend?: No Do you have trouble with day-to-day activities such as bathing, preparing meals, shopping, managing finances, etc.?: No Are you currently unemployed and looking for a job?: No Are you interested in more education?: No Please select the resources that you would like help with: None Currently or been in a relationship where the following occur: I choose not to answer THRIVE Score: 1 AUDIT C Alcohol Use Questionnaire (AUDIT-C) 1. How often do you have a drink containing alcohol?: Monthly or less 2. How many drinks containing alcohol do you have on a typical day when you are drinking?: 1 or 2 3. How often do you have six or more drinks on one occasion?: Less than monthly Total Score: 2 FLORESITA-7 AMB Questionnaire FLORESITA-7 Date FLORESITA - 7 assessed: 01/31/25 Feeling nervous, anxious, or on edge: 1 = Several days Source: Developed by Drs. Johny Wilson, Hortensia Ayala, Tree Barnes and colleagues, with an educational maurilio from [employer] ([place]). Review of Systems Const All systems reviewed & are unremarkable except as noted in HPI and below Card Denies chest pain at rest, Denies chest pain with activity, Denies edema, Denies irregular heart rhythm, Denies claudication, Denies dyspnea, Denies dyspnea on exertion, Denies orthopnea, Denies paroxysmal nocturnal dyspnea and Denies slow heart rate Resp Denies cough, Denies dyspnea and Denies dyspnea on exertion GI Denies abdominal pain, Denies change in bowel habits, Denies excessive flatus, Denies nausea and Denies vomiting Denies urinary incontinence, Denies urinary hesitancy and Denies urinary urgency Neuro Denies lack of coordination Physical exam (Primary Care) Vital Signs: Last Vital Signs Temp 97.1 F 08/08/25 09:01 Pulse 85 08/08/25 09:01 BP 140/80 H 08/08/25 09:01 Pulse Ox 99 08/08/25 09:01 Oxygen Delivery Method Room Air 08/08/25 09:01 BMI result Body Mass Index 25.2 Tobacco/Smoking Status: Tobacco use Status Tobacco use date assessed 08/08/25 08/08/25 09:02 Patient Tobacco Use Status Never used Tobacco 08/08/25 09:01 e-Cigarette/Vaping Use Never Used 08/08/25 09:01 Thrive Assessment: Date of Thrive Assessment Date Thrive assessed 01/31/25 08/08/25 09:01 Currently or been in a relationship where the following occur: I choose not to answer [facility] Head: Yes normal to inspection, Yes normocephalic and Yes atraumatic Ears: external ears normal Eyes General: appearance normal, both eyes and all related structures Eyelids: Yes eyelids normal Conjunctivae: conjunctivae normal Neck Neck: Yes normal visual inspection and Yes supple Resp Effort & Inspection: normal respiratory effort Auscultation: clear to auscultation bilaterally Cardio Jugular venous distension: no JVD Rate: regular rate Rhythm: regular rhythm Heart sounds: S1 normal heart sound present and S2 normal heart sound present GI Inspection: Yes normal to inspection Palpation (GI): Soft to palpation and nontender Auscultation: normal bowel sounds Skin General skin exam: no rashes or lesions noted Neuro General: no focal motor deficits Extrem General: Yes full ROM Psych Appearance: grossly normal Coding Level of Care Code Est Pt Level 3 (50520) Est Pt Prev Care 40-64y(30077) Diagnoses Physical exam Z00.00 Mild recurrent major depression F33.0 Venous insufficiency I87.2 Time Spent (min) 33 Assessment & Plan Assessment & Plan (1) Physical exam: Code(s): Z00.00 - Encounter for general adult medical examination without abnormal findings Category: Medical (2) Mild recurrent major depression: Code(s): F33.0 - Major depressive disorder, recurrent, mild Category: Medical (3) Venous insufficiency: Code(s): I87.2 - Venous insufficiency (chronic) (peripheral) Category: Medical Plan Plan 1. Annual Physical Examination The patient presented for an annual physical exam. A referral for a colonoscopy will be provided for screening. Laboratory studies will be ordered. Follow-up with neurology is recommended. 2. Depression The patient is being treated for depression with bupropion. Continue current medication. 3. Venous insufficiency Referred to vascular surgery. Orders: Orders Lipid Panel Today E78.5 - Hyperlipidemia, unspecified Vitamin D 25-OH Total Today E55.9 - Vitamin D deficiency, unspecified Comprehensive [place]. Panel Fast Today I10 - Essential (primary) hypertension Referrals Vascular Surgery Referral I87.2 - Venous insufficiency (chronic) (peripheral) Open Access Screening Colonoscopy Referral Z12.12 - Encounter for screening for malignant neoplasm of rectum
== END 2025-08-08 09:36 | disposition home or self-care (01) ==
LOC: HO.HMCH 08:03
PROVIDERS: PCP Internal Medicine; Visit Provider Internal Medicine
DX: Z00.00 Encounter for general adult medical examination without abnormal findings (principal); F33.0 Major depressive disorder, recurrent, mild; I87.2 Venous insufficiency (chronic) (peripheral)

== ENCOUNTER → 2025-08-08 08:02 | Outpatient (BNVA) | payer OTHER, SELFPAY | PROVIDERS: PCP Internal Medicine; Visit Provider Internal Medicine | DX: Z00.00 Encounter for general adult medical examination without abnormal findings (principal); I10 Essential (primary) hypertension; G47.00 Insomnia, unspecified; F33.0 Major depressive disorder, recurrent, mild; I87.2 Venous insufficiency (chronic) (peripheral); E78.5 Hyperlipidemia, unspecified; E55.9 Vitamin D deficiency, unspecified; Z79.899 Other long term (current) drug therapy | CPT/HCPCS: 99396 ==